=== PATIENT | female | born 1985 | race Two or more races ===

== ENCOUNTER 2018-04-09 17:41 | Emergency (ER) | payer OTHER ==
[2018-04-09 20:29] LABS: BASO # 0.1 10^3/uL (0.0-0.2); BASO % 0.6 % (0.0-1.0); EOS # 0.1 10^3/uL (0.0-0.50); EOS % 0.8 % (0.0-3.0); HEMATOCRIT 42.2 % (36.0-47.0); HEMOGLOBIN 13.6 g/dl (12.0-15.5); IMMATURE GRANULOCYTE % 0.2 % (0-3.0); LYMPH # 2.6 10^3/uL (1.5-4.5); MEAN CORPUSCULAR HEMOGLOBIN 28.8 pg (27.0-33.0); MEAN CORPUSCULAR HGB CONC 32.2 g/dl (32.0-36.5); MEAN CORPUSCULAR VOLUME 89.4 fl (80.0-96.0); MONO # 0.7 10^3/uL (0.0-0.8); MONO % 7.9 % (0.0-5.0); NEUTROPHILS # 5.6 10^3/uL (1.8-7.7); NEUTROPHILS % 61.5 % (36.0-66.0); PLATELET COUNT, AUTOMATED 219 10^3/uL (150-450); RED BLOOD COUNT 4.72 10^6/uL (4.00-5.40); RED CELL DISTRIBUTION WIDTH 14.4 % (11.5-14.5)
[2018-04-09] MEDS: MORPHINE 2 MG/ML 1ML SYRINGE (J2270) IV (20:37)
[2018-04-09] MEDS: NS 1,000 ML IV (20:38)
[2018-04-09] MEDS: METOCLOPRAMIDE INJ 10MG/2ML VIAL (J2765) IV (20:38)
[2018-04-09 20:56] LABS: APPEARANCE, URINE CLEAR (CLEAR); BACTERIA, URINE AUTO NEGATIVE (NEGATIVE); BILIRUBIN, URINE AUTO NEGATIVE (NEGATIVE); BLOOD, URINE BLOOD 1+ (NEGATIVE); COLOR, URINE YELLOW (YELLOW); GLUCOSE, URINE (UA) AUTO NEGATIVE (NEGATIVE); KETONE, URINE AUTO NEGATIVE (NEGATIVE); LEUKOCYTE ESTERASE, URINE AUTO NEGATIVE (NEGATIVE); MUCUS, URINE SMALL (NEGATIVE); NITRITE, URINE AUTO NEGATIVE (NEGATIVE); PROTEIN, URINE AUTO NEGATIVE (NEGATIVE); RBC, URINE AUTO 4 /HPF (0-3); SPECIFIC GRAVITY URINE AUTO 1.018 (1.002-1.035); SQUAMOUS EPITHELIAL CELL UR AU 1 /HPF (0-6); UROBILINOGEN, URINE AUTO 0.2 mg/dL (0.0-2.0); WBC, URINE AUTO 1 /HPF (0-3)
[2018-04-09 21:02] LABS: ALBUMIN 3.9 GM/DL (3.2-5.2); ALBUMIN/GLOBULIN RATIO 1.18 (1.00-1.93); ALKALINE PHOSPHATASE 68 U/L (45-117); ALT/SGPT 23 U/L (12-78); ANION GAP 10 MEQ/L (8-16); AST/SGOT 9 U/L (7-37); BILIRUBIN,DIRECT < 0.1 MG/DL (0.0-0.2); BILIRUBIN,TOTAL 0.3 MG/DL (0.2-1.0); BLOOD UREA NITROGEN 13 MG/DL (7-18); CALCIUM LEVEL 8.5 MG/DL (8.5-10.1); CARBON DIOXIDE LEVEL 24 MEQ/L (21-32); CHLORIDE LEVEL 107 MEQ/L (98-107); CONTROL LINE HCG INT CTR LINE PRESENT; CREATININE FOR GFR 0.74 MG/DL (0.55-1.30); GLOMERULAR FILTRATION RATE > 60.0 (>60); GLUCOSE, FASTING 82 MG/DL (70-100); HCG, SERUM QUALITATIVE NEGATIVE (NEGATIVE); LIPASE 62 U/L (73-393); POTASSIUM SERUM 3.7 MEQ/L (3.5-5.1); SODIUM LEVEL 141 MEQ/L (136-145); TOTAL PROTEIN 7.2 GM/DL (6.4-8.2)
[2018-04-09] MEDS: ACETAMINOPHEN 325 MG TAB PO (23:18)
== END 2018-04-09 23:28 | disposition home or self-care (01) ==
LOC: M ED 17:41
DX: N20.0 Calculus of kidney (principal); Z87.442 Personal history of urinary calculi; Z88.8 Allergy status to other drugs, medicaments and biological substances; Z88.5 Allergy status to narcotic agent
CPT/HCPCS: J2765

== ENCOUNTER 2018-05-17 01:05 | Emergency (ER) | payer OTHER ==
[2018-05-17] MEDS: HYDROMORPHONE HCL 0.5 MG/ 0.5 ML SYRINGE (J1170 PER 1) IV ×2 (01:39→02:45)
[2018-05-17] MEDS: NS 1,000 ML IV (01:39)
[2018-05-17 01:54] LABS: BASO # 0.1 10^3/uL (0.0-0.2); BASO % 0.6 % (0.0-1.0); EOS % 0.4 % (0.0-3.0); HEMATOCRIT 40.9 % (36.0-47.0); HEMOGLOBIN 13.5 g/dl (12.0-15.5); IMMATURE GRANULOCYTE % 0.4 % (0-3.0); LYMPH # 2.8 10^3/uL (1.5-4.5); LYMPH % 36.6 % (24.0-44.0); MEAN CORPUSCULAR HEMOGLOBIN 29.1 pg (27.0-33.0); MEAN CORPUSCULAR VOLUME 88.1 fl (80.0-96.0); MONO # 0.5 10^3/uL (0.0-0.8); MONO % 6.6 % (0.0-5.0); NEUTROPHILS # 4.3 10^3/uL (1.8-7.7); NEUTROPHILS % 55.4 % (36.0-66.0); PLATELET COUNT, AUTOMATED 210 10^3/uL (150-450); RED BLOOD COUNT 4.64 10^6/uL (4.00-5.40); RED CELL DISTRIBUTION WIDTH 13.6 % (11.5-14.5); WHITE BLOOD COUNT 7.7 10^3/uL (4.0-10.0)
[2018-05-17] MEDS: METOCLOPRAMIDE INJ 10MG/2ML VIAL (J2765) IV (01:55)
[2018-05-17 02:16] LABS: ALBUMIN 3.9 GM/DL (3.2-5.2); ALBUMIN/GLOBULIN RATIO 0.98 (1.00-1.93); ALKALINE PHOSPHATASE 66 U/L (45-117); ALT/SGPT 21 U/L (12-78); ANION GAP 8 MEQ/L (8-16); AST/SGOT 14 U/L (7-37); BILIRUBIN,DIRECT < 0.1 MG/DL (0.0-0.2); BILIRUBIN,TOTAL 0.1 MG/DL (0.2-1.0); BLOOD UREA NITROGEN 13 MG/DL (7-18); CALCIUM LEVEL 9.2 MG/DL (8.5-10.1); CARBON DIOXIDE LEVEL 27 MEQ/L (21-32); CHLORIDE LEVEL 111 MEQ/L (98-107); CREATININE FOR GFR 0.81 MG/DL (0.55-1.30); ETHYL ALCOHOL (ETHANOL) 0.231 % (0.000-0.010); GLOMERULAR FILTRATION RATE > 60.0 (>60); GLUCOSE, FASTING 99 MG/DL (70-100); LIPASE 2146 U/L (73-393); POTASSIUM SERUM 4.1 MEQ/L (3.5-5.1); SODIUM LEVEL 146 MEQ/L (136-145); TOTAL PROTEIN 7.9 GM/DL (6.4-8.2)
[2018-05-17 02:24] LABS: CONTROL LINE HCG INT CTR LINE PRESENT; HCG, SERUM QUALITATIVE NEGATIVE (NEGATIVE)
[2018-05-17] MEDS: LORazepam 2 MG/ML VIAL (J2060) IV (02:44)
[2018-05-17 03:29] LABS: KETONE, URINE AUTO RFX NEGATIVE (NEGATIVE); LEUKOCYTE ESTERASE UR AUTO RFX NEGATIVE (NEGATIVE); MUCUS, URINE RFX SMALL (NEGATIVE); NITRITE, URINE AUTO RFX NEGATIVE (NEGATIVE); RBC, URINE AUTO RFX 0 /HPF (0-3); SPECIFIC GRAVITY UR AUTO RFX 1.012 (1.002-1.035); SQUAM EPITHELIAL CELL UR AURFX 1 /HPF (0-6); WBC, URINE AUTO RFX 1 /HPF (0-3)
[2018-05-17 03:41] LABS: AMPHETAMINES LEVEL URINE NEGATIVE (NEGATIVE); BARBITURATES URINE NEGATIVE (NEGATIVE); BENZODIAZEPINES URINE NEGATIVE (NEGATIVE); CANNABINOIDS URINE NEGATIVE (NEGATIVE); COCAINE METABOLITE URINE NEGATIVE (NEGATIVE); METHADONE URINE NEGATIVE (NEGATIVE); OPIATES URINE POSITIVE (NEGATIVE); PHENCYCLIDINE URINE NEGATIVE (NEGATIVE)
[2018-05-17] MEDS: OXYCODONE/APAP 5MG/325MG(BULK FOR ED) 1 TABLET PO (04:05)
[2018-05-17] MEDS: GI COCKTAIL 50ML BTL(HYOSCYAMINE/MAALOX/LIDOCAINE VISCOUS)(1:3:1) PO (04:05)
== END 2018-05-17 04:28 | disposition home or self-care (01) ==
LOC: M ED 01:05
DX: K85.20 Alcohol induced acute pancreatitis without necrosis or infection (principal); Z87.442 Personal history of urinary calculi; Z88.5 Allergy status to narcotic agent; Z88.8 Allergy status to other drugs, medicaments and biological substances
CPT/HCPCS: J2765

== ENCOUNTER 2018-05-18 13:30 | Emergency (ER) | payer OTHER ==
[2018-05-18 14:30] LABS: BASO # 0.1 10^3/uL (0.0-0.2); BASO % 0.8 % (0.0-1.0); EOS % 0.7 % (0.0-3.0); HEMATOCRIT 42.2 % (36.0-47.0); HEMOGLOBIN 13.3 g/dl (12.0-15.5); IMMATURE GRANULOCYTE % 0.2 % (0-3.0); LYMPH % 32.5 % (24.0-44.0); MEAN CORPUSCULAR HEMOGLOBIN 29.4 pg (27.0-33.0); MEAN CORPUSCULAR HGB CONC 31.5 g/dl (32.0-36.5); MEAN CORPUSCULAR VOLUME 93.2 fl (80.0-96.0); MONO # 0.4 10^3/uL (0.0-0.8); NEUTROPHILS # 3.6 10^3/uL (1.8-7.7); NEUTROPHILS % 58.8 % (36.0-66.0); PLATELET COUNT, AUTOMATED 210 10^3/uL (150-450); RED BLOOD COUNT 4.53 10^6/uL (4.00-5.40); RED CELL DISTRIBUTION WIDTH 13.7 % (11.5-14.5)
[2018-05-18 14:31] LABS: KETONE, URINE AUTO RFX NEGATIVE (NEGATIVE); LEUKOCYTE ESTERASE UR AUTO RFX NEGATIVE (NEGATIVE); MUCUS, URINE RFX SMALL (NEGATIVE); NITRITE, URINE AUTO RFX NEGATIVE (NEGATIVE); RBC, URINE AUTO RFX 1 /HPF (0-3); SPECIFIC GRAVITY UR AUTO RFX 1.021 (1.002-1.035); SQUAM EPITHELIAL CELL UR AURFX 2 /HPF (0-6); WBC, URINE AUTO RFX 1 /HPF (0-3)
[2018-05-18 14:48] LABS: ALBUMIN 3.5 GM/DL (3.2-5.2); ALBUMIN/GLOBULIN RATIO 0.92 (1.00-1.93); ALKALINE PHOSPHATASE 59 U/L (45-117); ALT/SGPT 21 U/L (12-78); AMYLASE 26 U/L (25-115); ANION GAP 9 MEQ/L (8-16); AST/SGOT 10 U/L (7-37); BILIRUBIN,DIRECT < 0.1 MG/DL (0.0-0.2); BILIRUBIN,TOTAL 0.3 MG/DL (0.2-1.0); BLOOD UREA NITROGEN 18 MG/DL (7-18); CALCIUM LEVEL 8.6 MG/DL (8.5-10.1); CARBON DIOXIDE LEVEL 23 MEQ/L (21-32); CHLORIDE LEVEL 109 MEQ/L (98-107); CREATININE FOR GFR 0.84 MG/DL (0.55-1.30); GLOMERULAR FILTRATION RATE > 60.0 (>60); GLUCOSE, FASTING 91 MG/DL (70-100); LIPASE 81 U/L (73-393); POTASSIUM SERUM 3.9 MEQ/L (3.5-5.1); SODIUM LEVEL 141 MEQ/L (136-145); TOTAL PROTEIN 7.3 GM/DL (6.4-8.2)
[2018-05-18] MEDS ORDERED: ISOVUE-370 76% 100ML VIAL (Q9967) As Ordered (16:33)
[2018-05-18] MEDS: NS 1,000 ML IV (17:50)
[2018-05-18] MEDS: MORPHINE 4 MG/ML 1ML VIAL/SYRINGE (J2270) IV (17:50)
[2018-05-18] MEDS: ONDANSETRON 4MG/2ML VIAL (J2405) IV (18:02)
[2018-05-18] MEDS: HYDROMORPHONE HCL 0.5 MG/ 0.5 ML SYRINGE (J1170 PER 1) IV ×2 (18:47→19:40)
[2018-05-18] MEDS: LORazepam 2 MG/ML VIAL (J2060) IV (19:34)
[2018-05-18] MEDS: ONDANSETRON 4 MG ORAL DISINTEGRATING TAB (Q0162 PER 1MG) PO (20:00)
[2018-05-18] MEDS: ACETAMINOPH W/CODEINE #3 TAB UD PO (20:06)
== END 2018-05-18 20:12 | disposition home or self-care (01) ==
LOC: M ED 13:30
DX: R10.9 Unspecified abdominal pain (principal); Z87.19 Personal history of other diseases of the digestive system; F41.9 Anxiety disorder, unspecified; Z87.442 Personal history of urinary calculi; Z88.5 Allergy status to narcotic agent; Z88.8 Allergy status to other drugs, medicaments and biological substances
CPT/HCPCS: J2270

== ENCOUNTER 2018-06-24 10:15 | Emergency (ER) | payer OTHER ==
[2018-06-24 11:12] LABS: KETONE, URINE AUTO RFX NEGATIVE (NEGATIVE); LEUKOCYTE ESTERASE UR AUTO RFX NEGATIVE (NEGATIVE); MUCUS, URINE RFX SMALL (NEGATIVE); NITRITE, URINE AUTO RFX NEGATIVE (NEGATIVE); RBC, URINE AUTO RFX 4 /HPF (0-3); SPECIFIC GRAVITY UR AUTO RFX 1.025 (1.002-1.035); SQUAM EPITHELIAL CELL UR AURFX 1 /HPF (0-6); WBC, URINE AUTO RFX 1 /HPF (0-3)
[2018-06-24] MEDS: MORPHINE 4 MG/ML 1ML VIAL/SYRINGE (J2270) IV ×2 (11:28→12:15)
[2018-06-24] MEDS: ONDANSETRON 4MG/2ML VIAL (J2405) IV (11:28)
[2018-06-24] MEDS: NS 1,000 ML IV (11:28)
[2018-06-24] MEDS: TAMSULOSIN 0.4 MG CAP PO (11:28)
[2018-06-24 11:45] LABS: BASO % 0.6 % (0.0-1.0); EOS # 0.1 10^3/uL (0.0-0.50); EOS % 0.8 % (0.0-3.0); HEMATOCRIT 43.5 % (36.0-47.0); HEMOGLOBIN 14.1 g/dl (12.0-15.5); IMMATURE GRANULOCYTE % 0.1 % (0-3.0); LYMPH # 1.9 10^3/uL (1.5-4.5); LYMPH % 26.3 % (24.0-44.0); MEAN CORPUSCULAR HEMOGLOBIN 29.6 pg (27.0-33.0); MEAN CORPUSCULAR HGB CONC 32.4 g/dl (32.0-36.5); MEAN CORPUSCULAR VOLUME 91.2 fl (80.0-96.0); MONO # 0.5 10^3/uL (0.0-0.8); MONO % 6.7 % (0.0-5.0); NEUTROPHILS # 4.7 10^3/uL (1.8-7.7); NEUTROPHILS % 65.5 % (36.0-66.0); PLATELET COUNT, AUTOMATED 185 10^3/uL (150-450); RED BLOOD COUNT 4.77 10^6/uL (4.00-5.40); RED CELL DISTRIBUTION WIDTH 12.8 % (11.5-14.5); WHITE BLOOD COUNT 7.2 10^3/uL (4.0-10.0)
[2018-06-24 12:04] LABS: ALBUMIN 3.9 GM/DL (3.2-5.2); ALKALINE PHOSPHATASE 64 U/L (45-117); ALT/SGPT 20 U/L (12-78); ANION GAP 7 MEQ/L (8-16); AST/SGOT 12 U/L (7-37); BILIRUBIN,TOTAL 0.4 MG/DL (0.2-1.0); BLOOD UREA NITROGEN 13 MG/DL (7-18); CALCIUM LEVEL 8.8 MG/DL (8.5-10.1); CARBON DIOXIDE LEVEL 27 MEQ/L (21-32); CHLORIDE LEVEL 106 MEQ/L (98-107); CREATININE FOR GFR 0.83 MG/DL (0.55-1.30); GLOMERULAR FILTRATION RATE > 60.0 (>60); GLUCOSE, FASTING 94 MG/DL (70-100); LIPASE 77 U/L (73-393); POTASSIUM SERUM 4.1 MEQ/L (3.5-5.1); SODIUM LEVEL 140 MEQ/L (136-145); TOTAL PROTEIN 7.8 GM/DL (6.4-8.2)
[2018-06-24] MEDS: PROMETHAZINE 25 MG TAB PO (12:15)
[2018-06-24] MEDS: PHENAZOPYRIDINE 100 MG TAB PO (13:20)
[2018-06-24] MEDS: fentaNYL 100 MCG/2 ML INJECTION (J3010) IV (13:20)
== END 2018-06-24 14:14 | disposition home or self-care (01) ==
LOC: M ED 10:15
DX: R10.2 Pelvic and perineal pain (principal); R11.2 Nausea with vomiting, unspecified; R19.7 Diarrhea, unspecified; N20.0 Calculus of kidney; Z96.0 Presence of urogenital implants; Z88.5 Allergy status to narcotic agent; Z88.8 Allergy status to other drugs, medicaments and biological substances; Z87.891 Personal history of nicotine dependence
CPT/HCPCS: J2270

== ENCOUNTER 2018-07-15 16:59 | Emergency (ER) | payer OTHER ==
[2018-07-15 18:02] LABS: BASO % 0.4 % (0.0-1.0); EOS # 0.1 10^3/uL (0.0-0.50); EOS % 0.7 % (0.0-3.0); HEMOGLOBIN 13.6 g/dl (12.0-15.5); IMMATURE GRANULOCYTE % 0.4 % (0-3.0); LYMPH # 2.4 10^3/uL (1.5-4.5); MEAN CORPUSCULAR HEMOGLOBIN 30.3 pg (27.0-33.0); MEAN CORPUSCULAR HGB CONC 33.2 g/dl (32.0-36.5); MEAN CORPUSCULAR VOLUME 91.3 fl (80.0-96.0); MONO # 0.7 10^3/uL (0.0-0.8); MONO % 6.7 % (0.0-5.0); NEUTROPHILS # 6.8 10^3/uL (1.8-7.7); NEUTROPHILS % 67.8 % (36.0-66.0); PLATELET COUNT, AUTOMATED 230 10^3/uL (150-450); RED BLOOD COUNT 4.49 10^6/uL (4.00-5.40); RED CELL DISTRIBUTION WIDTH 12.5 % (11.5-14.5)
[2018-07-15] MEDS: NS 1,000 ML IV (18:04)
[2018-07-15] MEDS: MORPHINE 4 MG/ML 1ML VIAL/SYRINGE (J2270) IV ×2 (18:05→19:35)
[2018-07-15] MEDS: METOCLOPRAMIDE INJ 10MG/2ML VIAL (J2765) IV (18:05)
[2018-07-15 18:09] LABS: KETONE, URINE AUTO RFX NEGATIVE (NEGATIVE); LEUKOCYTE ESTERASE UR AUTO RFX NEGATIVE (NEGATIVE); MUCUS, URINE RFX SMALL (NEGATIVE); NITRITE, URINE AUTO RFX NEGATIVE (NEGATIVE); RBC, URINE AUTO RFX 1 /HPF (0-3); SPECIFIC GRAVITY UR AUTO RFX 1.023 (1.002-1.035); SQUAM EPITHELIAL CELL UR AURFX 7 /HPF (0-6); WBC, URINE AUTO RFX 2 /HPF (0-3)
[2018-07-15 18:48] LABS: ALBUMIN 3.8 GM/DL (3.2-5.2); ALBUMIN/GLOBULIN RATIO 1.12 (1.00-1.93); ALKALINE PHOSPHATASE 64 U/L (45-117); ALT/SGPT 21 U/L (12-78); AMYLASE 22 U/L (25-115); ANION GAP 11 MEQ/L (8-16); AST/SGOT 12 U/L (7-37); BILIRUBIN,DIRECT < 0.1 MG/DL (0.0-0.2); BILIRUBIN,TOTAL 0.3 MG/DL (0.2-1.0); BLOOD UREA NITROGEN 15 MG/DL (7-18); CALCIUM LEVEL 8.7 MG/DL (8.5-10.1); CARBON DIOXIDE LEVEL 20 MEQ/L (21-32); CHLORIDE LEVEL 112 MEQ/L (98-107); CREATININE FOR GFR 0.62 MG/DL (0.55-1.30); GLOMERULAR FILTRATION RATE > 60.0 (>60); GLUCOSE, FASTING 106 MG/DL (70-100); LIPASE 86 U/L (73-393); POTASSIUM SERUM 4.2 MEQ/L (3.5-5.1); SODIUM LEVEL 143 MEQ/L (136-145); TOTAL PROTEIN 7.2 GM/DL (6.4-8.2)
[2018-07-15] MEDS ORDERED: ISOVUE-370 76% 100ML VIAL (Q9967) As Ordered (18:50)
[2018-07-15] MEDS: ONDANSETRON 4MG/2ML VIAL (J2405) IV (19:35)
[2018-07-15] MEDS: ACETAMINOPH W/CODEINE #3 TAB UD PO (21:45)
== END 2018-07-15 22:03 | disposition home or self-care (01) ==
LOC: M ED 16:59
DX: N83.209 Unspecified ovarian cyst, unspecified side (principal)
CPT/HCPCS: J2270

== ENCOUNTER → 2018-08-18 | Outpatient (CLI) | payer OTHER | LOC: M RAD 19:04 | DX: N20.0 Calculus of kidney (principal) | CPT/HCPCS: 74018 ==

== ENCOUNTER 2018-08-21 09:09 | Day surgery (SDC) | payer OTHER ==
[2018-08-21 10:56] LABS: CONTROL LINE UCG INT CTR LINE PRESENT; URINE PREG TEST NEGATIVE (NEGATIVE)
[2018-08-21] MEDS ORDERED: ONDANSETRON 4MG/2ML VIAL (J2405) As Ordered (11:36)
[2018-08-21] MEDS ORDERED: dexameTHASONE 4 MG/ML 1ML VIAL (J1100) As Ordered (11:36)
[2018-08-21] MEDS ORDERED: LIDOCAINE 2% INJ 100 MG/5 ML SDV (FOR ANES.) As Ordered (11:36)
[2018-08-21] MEDS ORDERED: PROPOFOL 200 MG/20 ML VIAL As Ordered (11:36)
[2018-08-21] MEDS ORDERED: fentaNYL 100 MCG/2 ML INJECTION (J3010) As Ordered ×2 (11:37→13:12)
[2018-08-21] MEDS ORDERED: MIDAZOLAM INJ 2 MG/2 ML VIAL (J2250) As Ordered (11:37)
[2018-08-21] MEDS ORDERED: ACETAMINOPH W/CODEINE #3 TAB UD As Ordered (13:15)
[2018-08-21] MEDS ORDERED: PERCOCET 5MG/325MG TAB As Ordered ×2 (13:19→14:01)
[2018-08-21] MEDS ORDERED: MORPHINE 4 MG/ML 1ML VIAL/SYRINGE (J2270) As Ordered (13:26)
[2018-08-21] MEDS: MORPHINE 4 MG/ML 1ML VIAL/SYRINGE (J2270) IV ×5 (13:29→23:01)
[2018-08-21] MEDS: PERCOCET 5MG/325MG TAB PO ×3 (13:29→23:02)
[2018-08-21] MEDS ORDERED: ACETAMINOPH W/CODEINE #3 TAB UD PO ×2 (13:30)
[2018-08-21] MEDS ORDERED: ePHEDrine SULFATE 25 MG/5 ML(5MG/ML) SYRINGE As Ordered (13:52)
[2018-08-21] MEDS ORDERED: METOCLOPRAMIDE INJ 10MG/2ML VIAL (J2765) As Ordered (13:58)
[2018-08-21] MEDS ORDERED: fentaNYL 100 MCG/2 ML INJECTION (J3010) IV (14:15)
[2018-08-21] MEDS: ONDANSETRON 4MG/2ML VIAL (J2405) IV ×2 (14:21→20:33)
[2018-08-21] MEDS: TAMSULOSIN 0.4 MG CAP PO (18:01)
[2018-08-21] MEDS: diphenhydrAMINE 25 MG CAP PO (20:33)
[2018-08-22] MEDS: MORPHINE 4 MG/ML 1ML VIAL/SYRINGE (J2270) IV ×6 (01:35→18:45)
[2018-08-22] MEDS: ONDANSETRON 4MG/2ML VIAL (J2405) IV ×2 (05:37→10:34)
[2018-08-22] MEDS: diphenhydrAMINE 25 MG CAP PO (05:38)
[2018-08-22] MEDS: PERCOCET 5MG/325MG TAB PO ×2 (05:39→10:34)
[2018-08-22] MEDS: DOCUSATE SODIUM 100 MG CAP PO (09:47)
[2018-08-22] MEDS: NS 1,000 ML IV (09:47)
[2018-08-22] MEDS: TAMSULOSIN 0.4 MG CAP PO (09:47)
[2018-08-22] MEDS: oxyBUTYnin 5 MG TAB PO (14:54)
[2018-08-22] MEDS ORDERED: ACETAMINOPH W/CODEINE #3 TAB UD PO (16:45)
[2018-08-22] MEDS: ACETAMINOPH W/CODEINE #3 TAB UD PO (16:56)
[2018-08-22] MEDS: IBUPROFEN 600 MG TAB PO (18:15)
== END 2018-08-22 19:17 | disposition home or self-care (01) ==
LOC: M SDC 09:09 → M MSPAV 16:40 → M SDC 08-22 19:17
DX: N20.0 Calculus of kidney (principal); R30.0 Dysuria; K21.9 Gastro-esophageal reflux disease without esophagitis; F41.9 Anxiety disorder, unspecified; F32.9 Major depressive disorder, single episode, unspecified; Z88.5 Allergy status to narcotic agent; Z88.8 Allergy status to other drugs, medicaments and biological substances
CPT/HCPCS: 50590

== ENCOUNTER 2018-08-31 22:20 | Emergency (ER) | payer OTHER ==
[2018-08-31] MEDS: METOCLOPRAMIDE INJ 10MG/2ML VIAL (J2765) IV (22:46)
[2018-08-31] MEDS: MORPHINE 4 MG/ML 1ML VIAL/SYRINGE (J2270) IV ×2 (22:46→23:08)
[2018-09-01] MEDS: OXYCODONE/APAP 5MG/325MG(BULK FOR ED) 1 TABLET PO (00:27)
[2018-09-01 00:34] LABS: KETONE, URINE AUTO RFX NEGATIVE (NEGATIVE); LEUKOCYTE ESTERASE UR AUTO RFX NEGATIVE (NEGATIVE); MUCUS, URINE RFX SMALL (NEGATIVE); NITRITE, URINE AUTO RFX NEGATIVE (NEGATIVE); RBC, URINE AUTO RFX 1 /HPF (0-3); SPECIFIC GRAVITY UR AUTO RFX 1.008 (1.002-1.035); SQUAM EPITHELIAL CELL UR AURFX 2 /HPF (0-6); WBC, URINE AUTO RFX 1 /HPF (0-3)
[2018-09-01 00:41] LABS: BASO # 0.1 10^3/uL (0.0-0.2); BASO % 0.7 % (0.0-1.0); EOS # 0.1 10^3/uL (0.0-0.50); HEMATOCRIT 40.6 % (36.0-47.0); HEMOGLOBIN 13.3 g/dl (12.0-15.5); IMMATURE GRANULOCYTE % 0.6 % (0-3.0); LYMPH % 44.3 % (24.0-44.0); MEAN CORPUSCULAR HGB CONC 32.8 g/dl (32.0-36.5); MEAN CORPUSCULAR VOLUME 91.4 fl (80.0-96.0); MONO # 0.3 10^3/uL (0.0-0.8); MONO % 4.5 % (0.0-5.0); NEUTROPHILS # 3.3 10^3/uL (1.8-7.7); NEUTROPHILS % 48.9 % (36.0-66.0); PLATELET COUNT, AUTOMATED 214 10^3/uL (150-450); RED BLOOD COUNT 4.44 10^6/uL (4.00-5.40); RED CELL DISTRIBUTION WIDTH 12.3 % (11.5-14.5); WHITE BLOOD COUNT 6.8 10^3/uL (4.0-10.0)
[2018-09-01 01:13] LABS: INR 0.88; PROTHROMBIN TIME 12.1 SECONDS (12.1-14.4)
[2018-09-01 01:37] LABS: ALBUMIN 3.8 GM/DL (3.2-5.2); ALBUMIN/GLOBULIN RATIO 1.12 (1.00-1.93); ALKALINE PHOSPHATASE 65 U/L (45-117); ALT/SGPT 32 U/L (12-78); ANION GAP 12 MEQ/L (8-16); AST/SGOT 15 U/L (7-37); BILIRUBIN,DIRECT < 0.1 MG/DL (0.0-0.2); BILIRUBIN,TOTAL 0.2 MG/DL (0.2-1.0); BLOOD UREA NITROGEN 11 MG/DL (7-18); CALCIUM LEVEL 8.2 MG/DL (8.5-10.1); CARBON DIOXIDE LEVEL 22 MEQ/L (21-32); CHLORIDE LEVEL 111 MEQ/L (98-107); CREATININE FOR GFR 0.68 MG/DL (0.55-1.30); GLOMERULAR FILTRATION RATE > 60.0 (>60); GLUCOSE, FASTING 111 MG/DL (70-100); LIPASE 2840 U/L (73-393); POTASSIUM SERUM 3.9 MEQ/L (3.5-5.1); SODIUM LEVEL 145 MEQ/L (136-145); TOTAL PROTEIN 7.2 GM/DL (6.4-8.2)
== END 2018-09-01 00:43 | disposition home or self-care (01) ==
LOC: M ED 09-01 00:43
DX: N20.1 Calculus of ureter (principal); Z87.442 Personal history of urinary calculi; Z88.8 Allergy status to other drugs, medicaments and biological substances; Z88.5 Allergy status to narcotic agent; Z79.899 Other long term (current) drug therapy
CPT/HCPCS: J2270

== ENCOUNTER 2018-10-20 00:36 | Emergency (ER) | payer OTHER ==
[~2018-10-20] VITALS: Ht 165.1 cm; Wt 72.7 kg
[~2018-10-20 00:36] MED LIST: ACET30TAB PO; COLA100C5 PO; DILA8TAB5 PO; FLOM0.4C39 PO; MELA3TAB49 PO; PERC5TAB12 PO; PIRO10CA2 PO; ZOFR4TAB14 PO; ZOFR8TAB22 PO; ZOFR8TAB24 PO
[2018-10-20 01:29] LABS: BASO # 0.1 10^3/uL (0.0-0.2); BASO % 0.7 % (0.0-1.0); EOS # 0.1 10^3/uL (0.0-0.50); EOS % 0.8 % (0.0-3.0); HEMATOCRIT 42.5 % (36.0-47.0); HEMOGLOBIN 13.5 g/dl (12.0-15.5); LYMPH # 3.5 10^3/uL (1.5-4.5); LYMPH % 38.9 % (24.0-44.0); MEAN CORPUSCULAR HGB CONC 31.8 g/dl (32.0-36.5); MEAN CORPUSCULAR VOLUME 91.4 fl (80.0-96.0); MONO # 0.4 10^3/uL (0.0-0.8); MONO % 4.9 % (0.0-5.0); NEUTROPHILS # 4.9 10^3/uL (1.8-7.7); NEUTROPHILS % 54.5 % (36.0-66.0); PLATELET COUNT, AUTOMATED 243 10^3/uL (150-450); RED BLOOD COUNT 4.65 10^6/uL (4.00-5.40); WHITE BLOOD COUNT 8.9 10^3/uL (4.0-10.0)
[2018-10-20] MEDS ORDERED: ONDANSETRON 4MG/2ML VIAL (J2405) IV ONE (01:30)
[2018-10-20] MEDS ORDERED: NS 1,000 ML IV ONE (01:30)
[2018-10-20] MEDS ORDERED: MORPHINE 4 MG/ML 1ML VIAL/SYRINGE (J2270) IV ONE (01:30)
[2018-10-20 01:34] LABS: HCG, SERUM QUALITATIVE NEGATIVE (NEGATIVE)
[2018-10-20 01:40] LABS: ALBUMIN 3.7 GM/DL (3.2-5.2); ALT/SGPT 18 U/L (12-78); BILIRUBIN,DIRECT < 0.1 MG/DL (0.0-0.2); BILIRUBIN,TOTAL < 0.1 MG/DL (0.2-1.0); BLOOD UREA NITROGEN 14 MG/DL (7-18); CALCIUM LEVEL 8.6 MG/DL (8.5-10.1); CARBON DIOXIDE LEVEL 22 MEQ/L (21-32); CHLORIDE LEVEL 113 MEQ/L (98-107); CREATININE FOR GFR 0.83 MG/DL (0.55-1.30); ETHYL ALCOHOL (ETHANOL) 0.234 % (0.000-0.010); GLOMERULAR FILTRATION RATE > 60.0 (>60); GLUCOSE, FASTING 109 MG/DL (70-100); LIPASE 114 U/L (73-393); POTASSIUM SERUM 4.1 MEQ/L (3.5-5.1); SODIUM LEVEL 143 MEQ/L (136-145); TOTAL PROTEIN 7.5 GM/DL (6.4-8.2)
[2018-10-20] MEDS ORDERED: fentaNYL 100 MCG/2 ML INJECTION (J3010) IV ONE ×2 (02:00→02:45)
[2018-10-20 02:31] LABS: AMPHETAMINES LEVEL URINE NEGATIVE (NEGATIVE); BARBITURATES URINE NEGATIVE (NEGATIVE); BENZODIAZEPINES URINE NEGATIVE (NEGATIVE); CANNABINOIDS URINE NEGATIVE (NEGATIVE); COCAINE METABOLITE URINE NEGATIVE (NEGATIVE); METHADONE URINE NEGATIVE (NEGATIVE); OPIATES URINE POSITIVE (NEGATIVE); PHENCYCLIDINE URINE NEGATIVE (NEGATIVE)
[2018-10-20] MEDS ORDERED: LORazepam 2 MG/ML VIAL (J2060) IV STA (02:39)
[2018-10-20 03:34] LABS: CHLAMYDIA DNA AMPLIFICATION NEGATIVE (NEGATIVE); GC DNA AMPLIFICATION NEGATIVE (NEGATIVE)
[2018-10-20] MEDS ORDERED: ISOVUE-370 76% 100ML VIAL (Q9967) As Ordered ONE (03:55)
[2018-10-20] MEDS ORDERED: PROMETHAZINE INJ 25 MG/ML VIAL (J2550) IV ONE (04:45)
[2018-10-20] MEDS: GI COCKTAIL 50ML BTL(HYOSCYAMINE/MAALOX/LIDOCAINE VISCOUS)(1:3:1) PO ONE ×2 (04:45→05:02)
[2018-10-20 04:57] VITALS: BP 107/68
--- NOTE | 2018-10-20 05:47 | REPVR ---
EXAM: CT Abdomen and Pelvis With Contrast EXAM DATE/TIME: 10/20/2018 4:49 AM CLINICAL HISTORY: 32 years old, female; Pain; Abdominal pain; Additional info: Suprapubic pain TECHNIQUE: Axial computed tomography images of the abdomen and pelvis with intravenous contrast. All CT scans at this facility use at least one of these dose optimization techniques: automated exposure control; mA and/or kV adjustment per patient size (includes targeted exams where dose is matched to clinical indication); or iterative reconstruction. Coronal and sagittal reformatted images were created and reviewed. CONTRAST: 100 ml of iso 370 administered intravenously. COMPARISON: CT ABD/PEL W/IV CONTRAST ONLY 07/15/2018 6:47 PM FINDINGS: Lower thorax: Minimal bilateral lower lobe dependent atelectasis. ABDOMEN: Liver: Normal. No mass. Gallbladder and bile ducts: Normal. No calcified stones. No ductal dilation. Pancreas: Normal. No ductal dilation. Spleen: Splenic calcification. Adrenals: Normal. No mass. Kidneys and ureters: Small nonobstructing left renal calculus. Stomach and bowel: Normal. No obstruction. No mucosal thickening. Appendix: A normal appendix is seen. PELVIS: Bladder: Unremarkable as visualized. Reproductive: Unremarkable as visualized. ABDOMEN and PELVIS: Intraperitoneal space: Normal. No free air. No significant fluid collection. Bones/joints: No acute fracture. No dislocation. Soft tissues: Unremarkable. Vasculature: Normal. No abdominal aortic aneurysm. Lymph nodes: Normal. No enlarged lymph nodes. IMPRESSION: 1. Resolution of right ovarian cyst/follicle since 07/15/2018. There has also been resolution of nonobstructing right renal calculus and right obstructive uropathy. 2. Small nonobstructing left renal calculus which remains unchanged. 3. Otherwise negative CT abdomen/pelvis. Electronically signed by: Colin Schmidt On 10/20/2018 05:47:12 AM
[2018-10-20 07:31] LABS: CHLAMYDIA DNA AMPLIFICATION NEGATIVE (NEGATIVE); GC DNA AMPLIFICATION NEGATIVE (NEGATIVE)
== END 2018-10-20 06:35 | disposition left against medical advice (07) ==
LOC: M ED 00:36
DX: R10.9 Unspecified abdominal pain (principal); F10.129 Alcohol abuse with intoxication, unspecified
CPT/HCPCS: 74177; 80048; 80076; 80307; 81001; 83690; 84703; 85025; 87491; 87591; 93041; 96374; 96375; 96376; 99284; G0480; J2060; J2270; J2405; J3010; Q9967

== ENCOUNTER 2018-12-08 10:52 | Emergency (ER) | payer OTHER ==
[~2018-12-08] VITALS: Ht 165.1 cm; Wt 77.3 kg
[2018-12-08] MEDS ORDERED: MORPHINE 4 MG/ML 1ML VIAL/SYRINGE (J2270) IV ONE (11:30)
[2018-12-08] MEDS ORDERED: ONDANSETRON 4MG/2ML VIAL (J2405) IV ONE ×2 (11:30→13:45)
[2018-12-08] MEDS ORDERED: NS 1,000 ML IV ONE (11:30)
[2018-12-08 12:11] LABS: BASO % 0.7 % (0.0-1.0); EOS # 0.1 10^3/uL (0.0-0.50); EOS % 0.9 % (0.0-3.0); HEMATOCRIT 42.8 % (36.0-47.0); HEMOGLOBIN 13.7 g/dl (12.0-15.5); LYMPH % 36.9 % (24.0-44.0); MEAN CORPUSCULAR HEMOGLOBIN 29.4 pg (27.0-33.0); MEAN CORPUSCULAR VOLUME 91.8 fl (80.0-96.0); MONO # 0.5 10^3/uL (0.0-0.8); MONO % 9.9 % (0.0-5.0); NEUTROPHILS # 2.8 10^3/uL (1.8-7.7); NEUTROPHILS % 51.4 % (36.0-66.0); PLATELET COUNT, AUTOMATED 210 10^3/uL (150-450); RED BLOOD COUNT 4.66 10^6/uL (4.00-5.40); WHITE BLOOD COUNT 5.4 10^3/uL (4.0-10.0)
[2018-12-08] MEDS ORDERED: METOCLOPRAMIDE INJ 10MG/2ML VIAL (J2765) IV ONE (12:30)
[2018-12-08 12:42] LABS: HCG, SERUM QUALITATIVE NEGATIVE (NEGATIVE)
[2018-12-08 12:47] LABS: ALBUMIN 3.8 GM/DL (3.2-5.2); ALT/SGPT 20 U/L (12-78); AMYLASE 21 U/L (25-115); BILIRUBIN,DIRECT < 0.1 MG/DL (0.0-0.2); BILIRUBIN,TOTAL 0.3 MG/DL (0.2-1.0); BLOOD UREA NITROGEN 18 MG/DL (7-18); CALCIUM LEVEL 8.5 MG/DL (8.5-10.1); CARBON DIOXIDE LEVEL 24 MEQ/L (21-32); CHLORIDE LEVEL 107 MEQ/L (98-107); CREATININE FOR GFR 0.69 MG/DL (0.55-1.30); GLOMERULAR FILTRATION RATE > 60.0 (>60); GLUCOSE, FASTING 88 MG/DL (70-100); LIPASE 51 U/L (73-393); SODIUM LEVEL 139 MEQ/L (136-145)
[2018-12-08] MEDS ORDERED: HYDROMORPHONE HCL 0.5 MG/ 0.5 ML SYRINGE (J1170 PER 1) IV ONE (13:45)
[2018-12-08] MEDS ORDERED: CODE30TA3 PO (15:06)
[2018-12-08] MEDS ORDERED: PROM12.56 PO (15:07)
[2018-12-08 15:09] VITALS: BP 137/87
--- NOTE | 2018-12-08 16:49 | REP ---
CT ABDOMEN AND PELVIS WITHOUT IV CONTRAST: CT abdomen and pelvis was performed without oral or IV contrast. Sagittal and coronal reconstruction images are performed. Visualized lung bases are clear. A few tiny calcified granulomas are seen in the liver and spleen. The adrenals and pancreas are grossly unremarkable. 2 mm intrarenal calculus is seen in the left renal collecting system. There is no evidence of ureteral calculus. There is no evidence of hydroureteronephrosis. There is no abdominal aortic aneurysm. There is no adenopathy. There is no free air or free fluid. No bowel wall thickening is seen. There is no evidence of appendicitis. There is no evidence of a pelvic mass. Urinary bladder is not distended and not evaluated. IMPRESSION: Tiny 2 mm intrarenal calculus left kidney. No ureteral calculus or bladder calculus. No hydroureteronephrosis. No appendicitis. No free air or free fluid. Electronically Signed by Campos Persaud MD 12/08/2018 11:53 P
== END 2018-12-08 15:24 | disposition home or self-care (01) ==
LOC: M ED 10:52
DX: N20.0 Calculus of kidney (principal); R11.2 Nausea with vomiting, unspecified; Z87.442 Personal history of urinary calculi; F41.9 Anxiety disorder, unspecified; F32.9 Major depressive disorder, single episode, unspecified; Z88.5 Allergy status to narcotic agent; Z88.8 Allergy status to other drugs, medicaments and biological substances
CPT/HCPCS: 74176; 80048; 80076; 81001; 82150; 83690; 84703; 85025; 96361; 96374; 96375; 96376; 99284; J1170; J2270; J2405; J2765

== ENCOUNTER 2019-01-15 20:23 | Emergency (ER) | payer OTHER ==
[~2019-01-15] VITALS: Ht 165.1 cm; Wt 81.8 kg
[~2019-01-15 20:23] MED LIST changes: +ACET-716 PO; -ACET30TAB PO; +CODE30TA3 PO; +PROM12.56 PO
[2019-01-15 21:06] LABS: BASO # 0.1 10^3/uL (0.0-0.2); BASO % 0.8 % (0.0-1.0); EOS # 0.1 10^3/uL (0.0-0.50); EOS % 0.7 % (0.0-3.0); HEMATOCRIT 40.7 % (36.0-47.0); HEMOGLOBIN 13.3 g/dl (12.0-15.5); LYMPH # 2.8 10^3/uL (1.5-4.5); LYMPH % 36.8 % (24.0-44.0); MEAN CORPUSCULAR HEMOGLOBIN 30.2 pg (27.0-33.0); MEAN CORPUSCULAR HGB CONC 32.7 g/dl (32.0-36.5); MEAN CORPUSCULAR VOLUME 92.5 fl (80.0-96.0); MONO # 0.5 10^3/uL (0.0-0.8); NEUTROPHILS # 4.1 10^3/uL (1.8-7.7); NEUTROPHILS % 54.3 % (36.0-66.0); PLATELET COUNT, AUTOMATED 206 10^3/uL (150-450); WHITE BLOOD COUNT 7.6 10^3/uL (4.0-10.0)
[2019-01-15 21:24] LABS: BLOOD UREA NITROGEN 10 MG/DL (7-18); CALCIUM LEVEL 8.5 MG/DL (8.5-10.1); CARBON DIOXIDE LEVEL 23 MEQ/L (21-32); CHLORIDE LEVEL 109 MEQ/L (98-107); CREATININE FOR GFR 0.67 MG/DL (0.55-1.30); GLOMERULAR FILTRATION RATE > 60.0 (>60); GLUCOSE, FASTING 82 MG/DL (70-100); POTASSIUM SERUM 3.5 MEQ/L (3.5-5.1); SODIUM LEVEL 143 MEQ/L (136-145)
[2019-01-15] MEDS ORDERED: LORazepam 2 MG/ML VIAL (J2060) IV STA (22:38)
[2019-01-15] MEDS ORDERED: ISOVUE-370 76% 125ML VIAL (Q9967 PER ML) As Ordered ONE (22:41)
[2019-01-15] MEDS ORDERED: ONDANSETRON 4MG/2ML VIAL (J2405) IV ONE (22:45)
[2019-01-15] MEDS ORDERED: NS 1,000 ML IV ONE (22:45)
[2019-01-15] MEDS ORDERED: MORPHINE 2 MG/ML 1ML SYRINGE (J2270) IV ONE (22:45)
[2019-01-15 23:35] LABS: ALBUMIN 3.9 GM/DL (3.2-5.2); ALT/SGPT 17 U/L (12-78); BILIRUBIN,DIRECT < 0.1 MG/DL (0.0-0.2); BILIRUBIN,TOTAL 0.2 MG/DL (0.2-1.0); ETHYL ALCOHOL (ETHANOL) 0.126 % (0.000-0.010); LIPASE 75 U/L (73-393); TOTAL PROTEIN 7.1 GM/DL (6.4-8.2)
--- NOTE | 2019-01-15 23:49 | REPVR ---
EXAM: CT Abdomen and Pelvis With Contrast EXAM DATE/TIME: 01/15/2019 10:38 PM CLINICAL HISTORY: 33 years old, female; Pain; Abdominal pain; Localized; Right lower quadrant (rlq); Additional info: Rlq pain; R/O appy TECHNIQUE: Imaging protocol: Axial computed tomography images of the abdomen and pelvis with intravenous contrast. Coronal and sagittal reformatted images were created and reviewed. Radiation optimization: All CT scans at this facility use at least one of these dose optimization techniques: automated exposure control; mA and/or kV adjustment per patient size (includes targeted exams where dose is matched to clinical indication); or iterative reconstruction. Contrast material: iso Contrast volume: 100 ml Contrast route: ac COMPARISON: CT ABD/PEL W/IV CONTRAST ONLY 10/20/2018 4:34 AM FINDINGS: Lower thorax: No acute findings. ABDOMEN: Liver: There is a diffuse decrease in hepatic parenchymal density, consistent with fatty infiltration. Calcified hepatic granulomata. Small hepatic cyst. Gallbladder and bile ducts: Normal. No calcified stones. No ductal dilation. Pancreas: Normal. No ductal dilation. Spleen: Calcified granuloma. Otherwise normal. No splenomegaly. Adrenals: Normal. No mass. Kidneys and ureters: Punctate nonobstructive calculus lower pole left kidney. Stomach and bowel: Normal. No obstruction. No mucosal thickening. Appendix: Normal appendix. PELVIS: Bladder: Unremarkable as visualized. Reproductive: Enhancing corpus luteal cyst right ovary. ABDOMEN and PELVIS: Intraperitoneal space: Normal. No free air. No significant fluid collection. Bones/joints: No acute fracture. No dislocation. Soft tissues: Unremarkable. Vasculature: Normal. No abdominal aortic aneurysm. Lymph nodes: Normal. No enlarged lymph nodes. IMPRESSION: 1. Normal appendix. 2. There is a diffuse decrease in hepatic parenchymal density, consistent with fatty infiltration. Electronically signed by: Juan Alberto Mann On 01/15/2019 23:48:59 PM
[2019-01-16] MEDS ORDERED: ACETAMINOPH W/CODEINE #3 TAB UD PO ONE
[2019-01-16] MEDS ORDERED: MORPHINE 2 MG/ML 1ML SYRINGE (J2270) IV ONE
[2019-01-16] MEDS ORDERED: ONDANSETRON 4MG/2ML VIAL (J2405) IV ONE
[2019-01-16] MEDS ORDERED: ONDANSETRON 4 MG ORAL DISINTEGRATING TAB (Q0162 PER 1MG) PO ONE (00:45)
[2019-01-16 00:51] VITALS: BP 127/80
== END 2019-01-16 00:59 | disposition home or self-care (01) ==
LOC: M ED 20:23
DX: G89.29 Other chronic pain (principal); F10.120 Alcohol abuse with intoxication, uncomplicated; K76.0 Fatty (change of) liver, not elsewhere classified; R11.2 Nausea with vomiting, unspecified; Z87.442 Personal history of urinary calculi; Z88.8 Allergy status to other drugs, medicaments and biological substances; Z88.5 Allergy status to narcotic agent
CPT/HCPCS: 36415; 74177; 80048; 80076; 81025; 83690; 85025; 96374; 96375; 96376; 99284; G0480; J2060; J2270; J2405; Q0162; Q9967

== ENCOUNTER 2019-06-28 11:52 | Emergency (ER) | payer OTHER ==
[~2019-06-28] VITALS: Ht 165.1 cm; Wt 86.1 kg
[~2019-06-28 11:52] MED LIST changes: +ACET300T47 PO; -CODE30TA3 PO
[2019-06-28] MEDS ORDERED: NON-325T5 PO (11:59)
[2019-06-28] MEDS ORDERED: TETRACAINE 0.5% OPHTH SOLN 4ML OS ONE (12:15)
[2019-06-28] MEDS ORDERED: FLUORESCEIN OPHTH 1 MG STRIP OS ONE (12:15)
[2019-06-28] MEDS ORDERED: POLYSOL OS (12:54)
[2019-06-28] MEDS ORDERED: TYLETAB14 PO (12:54)
[2019-06-28] MEDS ORDERED: IBUP80TA PO (12:54)
[2019-06-28] MEDS ORDERED: IBUPROFEN 800 MG TAB PO ONE (13:00)
[2019-06-28 13:28] VITALS: BP 107/66
== END 2019-06-28 13:31 | disposition home or self-care (01) ==
LOC: M ED 11:52
DX: H10.32 Unspecified acute conjunctivitis, left eye (principal); Z87.442 Personal history of urinary calculi; Z88.8 Allergy status to other drugs, medicaments and biological substances

== ENCOUNTER 2019-08-01 12:34 | Observation (INO) | payer OTHER ==
[~2019-08-01] VITALS: Ht 165.1 cm; Wt 82.7 kg
[~2019-08-01 12:34] MED LIST changes: +IBUP80TA PO; +NON-325T5 PO; +POLYSOL OS; +TYLETAB14 PO
[2019-08-01] MEDS ORDERED: ONDANSETRON 4MG/2ML VIAL (J2405) IV ONE ×3 (13:30→20:45)
[2019-08-01] MEDS ORDERED: MORPHINE 4 MG/ML 1ML VIAL/SYRINGE (J2270) IV ONE ×3 (13:30→17:30)
[2019-08-01] MEDS ORDERED: NS 1,000 ML IV ONE (13:30)
[2019-08-01 13:57] LABS: BASO % 0.3 % (0.0-1.0); EOS % 0.3 % (0.0-3.0); HEMOGLOBIN 14.1 g/dl (12.0-15.5); LYMPH # 2.3 10^3/uL (1.5-5.0); LYMPH % 19.6 % (24.0-44.0); MEAN CORPUSCULAR HEMOGLOBIN 29.7 pg (27.0-33.0); MEAN CORPUSCULAR VOLUME 92.8 fl (80.0-96.0); MONO # 0.7 10^3/uL (0.0-0.8); MONO % 5.4 % (0.0-5.0); NEUTROPHILS # 8.8 10^3/uL (1.5-8.5); NEUTROPHILS % 74.1 % (36.0-66.0); PLATELET COUNT, AUTOMATED 213 10^3/uL (150-450); RED BLOOD COUNT 4.74 10^6/uL (4.00-5.40)
[2019-08-01 13:58] LABS: URINE PREG TEST NEGATIVE (NEGATIVE)
[2019-08-01 14:25] LABS: ALBUMIN 4.1 GM/DL (3.2-5.2); ALT/SGPT 19 U/L (12-78); BILIRUBIN,DIRECT < 0.1 MG/DL (0.0-0.2); BILIRUBIN,TOTAL 0.4 MG/DL (0.2-1.0); BLOOD UREA NITROGEN 11 MG/DL (7-18); CALCIUM LEVEL 8.7 MG/DL (8.5-10.1); CARBON DIOXIDE LEVEL 25 MEQ/L (21-32); CHLORIDE LEVEL 108 MEQ/L (98-107); CREATININE FOR GFR 0.89 MG/DL (0.55-1.30); GLOMERULAR FILTRATION RATE > 60.0 (>60); GLUCOSE, FASTING 85 MG/DL (70-100); LIPASE 68 U/L (73-393); POTASSIUM SERUM 3.7 MEQ/L (3.5-5.1); SODIUM LEVEL 141 MEQ/L (136-145); TOTAL PROTEIN 7.5 GM/DL (6.4-8.2)
[2019-08-01] MEDS ORDERED: ISOVUE-370 76% 100ML VIAL (Q9967) As Ordered ONE (14:36)
--- NOTE | 2019-08-01 15:31 | REP ---
CT of the abdomen and pelvis with IV contrast, without bowel contrast for right lower quadrant pain, question of appendicitis. Comparison is 01/15/2019. The appendix has a normal appearance. The gallbladder is unremarkable. There are no renal calculi. There is no hydronephrosis. There are no bladder calculi. The uterus and adnexa are unremarkable. There is a 9 ml hypodensity in the dome of the liver laterally, unchanged, likely an hepatic cyst. The gallbladder, pancreas, spleen, adrenals, and abdominal aorta, bowel and mesentery are unremarkable except for a small fat-containing umbilical hernia. This is unchanged. Pelvis: There is no ascites or adenopathy. There is wall thickening of the descending colon. This is nonspecific but compatible with colitis in the appropriate clinical setting. Impression: The appendix has a normal appearance. The gallbladder, uterus and adnexa are unremarkable. There is wall thickening of the descending colon, compatible with colitis in the appropriate clinical setting. No renal calculi. No hydronephrosis. Otherwise, negative CT of the abdomen and pelvis. Electronically Signed by Campos Mejia MD 08/01/2019 03:23 P
--- NOTE | 2019-08-01 17:18 | REPVR ---
PROCEDURE INFORMATION: Exam: US Pelvis Complete, Transabdominal and US Pelvis, Transvaginal Exam date and time: 08/01/2019 4:33 PM Clinical history: 33 years old, female; Pelvic pain; Additional info: Rlq pain R/O torsion TECHNIQUE: Imaging protocol: Real-time transabdominal and transvaginal pelvic ultrasound (complete) with image documentation. Transvaginal imaging was used for better evaluation of the endometrium and adnexa. COMPARISON: CT ABD/PEL W/IV CONTRAST ONLY 08/01/2019 3:05 PM FINDINGS: Uterus/cervix: Uterus measures 8.4 x 3.9 x 5.1 cm. Endometrial echocomplex measures 8 mm mildly increased for stage of menstrual cycle. Right adnexa: Right ovary measures 2.4 1.6 x 1.6 cm. Volume 3.2 cc. Resistive index 0.51. Left adnexa: Left ovary measures 2.1 x 1.6 x 1.1 cm. Volume 1.9 cc. Doppler of the left ovary not performed due to excessive patient discomfort in the right lower quadrant. Free fluid: None. Bladder: Normal. IMPRESSION: Mildly increased thickness of the endometrial echo complex. Left ovary blood flow not obtained as described above. Examination otherwise unremarkable. Electronically signed by: Juan Alberto Mann On 08/01/2019 17:18:09 PM
[2019-08-01] MEDS ORDERED: IBUP80TA PO (17:38)
[2019-08-01] MEDS ORDERED: [UNRECOGNIZED DRUG - OTHER] PO (17:38)
[2019-08-01] MEDS ORDERED: MIDOTAB PO (17:38)
[2019-08-01] MEDS ORDERED: TUMS500C PO (17:38)
[2019-08-01] MEDS ORDERED: ZOFR4TAB16 PO (17:38)
[2019-08-01] MEDS ORDERED: ACETAMINOPHEN TAB 650MG DOSE (2X325MG) PO PRN (18:00)
--- NOTE | 2019-08-01 18:04 | HPEPDOC ---
[facility] Medical History & Physical Date of Admission Aug 01, 2019 Date of Service: Aug 01, 2019 History and Physical CHIEF COMPLAINT: abd pain HISTORY OF PRESENT ILLNESS: 33 yo female history of endometriosis, dysmenorrhea - currently menstruating, presents for worsening right lower quadrant pain radiating to vagina and right flank. States her pain started last night, duration 1 day, intermittent, worsening, no modifying factors, no appetite, nausea and non-bilious vomiting with oral intake. PAST MEDICAL HISTORY: endometriosis nephrolithiasis ALLERGIES: Please see below. REVIEW OF SYSTEMS: Negative except as per HPI. HOME MEDICATIONS: Please see below. PHYSICAL EXAMINATION: VITAL SIGNS: See below General: NAD HEENT: NC/AT, EOMI Lungs: CTA B/L Heart: +S1S2 Abd: soft, NT, +BS, RLQ pain on deep palpation, obese Ext: no edema, multiple tattoos LABORATORY DATA: See below. MICROBIOLOGY: Please see below. ASSESSMENT: 33 yo female for worsening RLQ pain. #RLQ/flank/vaginal pain - unclear etiology - NPO/IVF - pain control - vice president quality improvement c/s #endometriosis - vice president quality improvement c/s pending #DVT prophylaxis - mechanical Vital Signs Vital Signs Date Time Temp Pulse Resp B/P (MAP) Pulse Ox O2 Delivery O2 Flow Rate FiO2 08/01/19 17:41 20 08/01/19 17:38 80 147/82 (103) 99 Room Air 08/01/19 12:35 97.7 Laboratory Data Labs 24H Laboratory Tests 2 08/01/19 13:26: Urine Color YELLOW, Urine Appearance CLOUDYH, Urine pH 7.0, Urine Specific [place] 1.029, Urine Protein 1+H, Urine Glucose (UA) NEGATIVE, Urine Ketones TRACEH, Urine Blood NEGATIVE, Urine Nitrite NEGATIVE, Urine Bilirubin NEGATIVE, Urine Urobilinogen 0.2, Urine Leukocyte Esterase NEGATIVE, Urine WBC (Auto) 0, Urine RBC (Auto) 1, Urine Hyaline Casts (Auto) 0, Urine Bacteria (Auto) NEGATIVE, Urine Squamous Epithelial Cells 1, Urine Amorphous Sediment SMALLH, Urine Mucus (Auto) SMALL, Urine Sperm (Auto) , Urine Test NEGATIVE 08/01/19 13:47: Immature Granulocyte % (Auto) 0.3, White Blood Count 12.0H, Red Blood Count 4.74, Hemoglobin 14.1, Hematocrit 44.0, Mean Corpuscular Volume 92.8, Mean Corpuscular Hemoglobin 29.7, Mean Corpuscular Hemoglobin Concent 32.0, Red Cell Distribution Width 12.7, Platelet Count 213, Neutrophils (%) (Auto) 74.1H, Lymphocytes (%) (Auto) 19.6L, Monocytes (%) (Auto) 5.4H, Eosinophils (%) (Auto) 0.3, Basophils (%) (Auto) 0.3, Neutrophils # (Auto) 8.8H, Lymphocytes # (Auto) 2.3, Monocytes # (Auto) 0.7, Eosinophils # (Auto) 0.0, Basophils # (Auto) 0.0, Nucleated Red Blood Cells % (auto) 0.0, Anion Gap 8, Glomerular Filtration Rate > 60.0, Calcium Level 8.7, Aspartate Amino Transf (AST/SGOT) 12, Alanine Aminotransferase (ALT/SGPT) 19, Alkaline Phosphatase 77, Total Bilirubin 0.4, Direct Bilirubin < 0.1, Total Protein 7.5, Albumin 4.1, Albumin/Globulin Ratio 1.21, Lipase 68L CBC/BMP Laboratory Tests 08/01/19 13:47 Red Blood Count 4.74, Mean Corpuscular Volume 92.8, Mean Corpuscular Hemoglobin 29.7, Mean Corpuscular Hemoglobin Concent 32.0, Red Cell Distribution Width 12.7, Neutrophils (%) (Auto) 74.1 H, Lymphocytes (%) (Auto) 19.6 L, Monocytes (%) (Auto) 5.4 H, Eosinophils (%) (Auto) 0.3, Basophils (%) (Auto) 0.3, Neutrophils # (Auto) 8.8 H, Lymphocytes # (Auto) 2.3, Monocytes # (Auto) 0.7, Eosinophils # (Auto) 0.0, Basophils # (Auto) 0.0 Home Medications Scheduled Melatonin/Chamomile Flower (Sm Melatonin 3 mg Tablet) 1 Each Tablet, 1 TAB PO QHS Scheduled PRN Acetaminophen/Pyrilamine/Caff (Midol Caplet) 1 Each Tablet, 1 EACH PO for CRAMPS Calcium Carbonate (Tums) 200 Mg Tab.chew, 1,000 MG PO Q4H PRN for HEARTBURN Ibuprofen (Ibuprofen) 800 Mg Tablet, 800 MG PO Q8H PRN for PAIN Ondansetron HCl (Zofran) 4 Mg Tablet, 4 MG PO Q6H PRN for NAUSEA Allergies Coded Allergies: cyclobenzaprine (Verified Allergy, Unknown, hives, 06/28/19) ketorolac (Verified Allergy, Unknown, hives, 06/28/19) tramadol (Verified Allergy, Unknown, hives, 06/28/19) can take ibuprofen A-FIB/CHADSVASC A-FIB History Current/History of A-Fib/PAF?: No RUTH ANN CAMERON MD Aug 01, 2019 17:46
[2019-08-01] MEDS ORDERED: METAL LOCK LOOP XX ONE (18:08)
[2019-08-01] MEDS ORDERED: MORPHINE 4 MG/ML 1ML VIAL/SYRINGE (J2270) IV PRN (18:15)
[2019-08-01] MEDS: NS 1,000 ML IV SCH (19:26)
--- NOTE | 2019-08-01 19:56 | IPNPDOC ---
Text Note Date of Service The patient was seen on 08/01/19. NOTE OBGYN consultation CC: RLQ and right flank pain Ms. Alex is a 33 yo with LMP 30Jul2019 who presented to the ER this evening for severely worsening RLQ pain radiating to the right flank and lower right back. Pain has been present for last 24-48 hours, and started when her menstrual cycle started. She describes the pain as stabbing and excruciating. Only things that relieve it are hot baths. She reports she gets these pains every time her menstrual cycle starts. She has been seen in the [place] [facility] office this past year for these symptoms but did not follow up after her initial visit. She has been to multiple ERs numerous times over the last several months for these symptoms. Confounding the issue is that she has an apparent history of kidney stones that have required stent placement and lithotripsy. She currently denies any vomiting but has had severe nausea. She denies any fevers/chills, recent trauma, diarrhea, or constipation. 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 LMP 30Jul2019. Severe dysmenorrhea and menorrhagia. Significantly worsening mood changes in days leading up to cycle. Abnormal papsmear 2009 that self resolved and normal since, no STDs, condoms for contraception OB Hx: . G1 2008 term , G2 2010 term , G3 Nov 2017 term , [id number]. Had nephrolithiasis in 3rd treated with ureteral stent PMHx: obesity (BMI 30.9), hx of depression and anxiety, insomnia, nephrolithiasis PSHx: ureteral stent 1999 and again Nov 2017, lithotripsy Jul 2018, dental procedures Meds: melatonin, prn motrin Allergies: tramadol, toradol, flexeril (all cause hives) SHx: denies tobacco, drugs. Social ETOH. FHx: denies breast, ovarian, uterine, or colon cancer Exam: General - AAOX3, sitting up in bed, pleasant and conversant, NAD CV - RRR Lungs - CTAB Abdomen - Soft, nondistended. When distracted, there is no tenderness to palpation in any quadrant. Pelvic - Declined Extremities - No edema Labs: HCG - negative CBC - 12.0>14.1/44.0<213 BMP - 141/3.7--108/25--11/0.89<85 AST/ALT - 10/15 Lipase - 68 Rads: CT Abd/pel: Impression: The appendix has a normal appearance. The gallbladder, uterus and adnexa are unremarkable. There is wall thickening of the descending colon, compatible with colitis in the appropriate clinical setting. No renal calculi. No hydronephrosis. Otherwise, negative CT of the abdomen and pelvis. Pelvic US: FINDINGS: Uterus/cervix: Uterus measures 8.4 x 3.9 x 5.1 cm. Endometrial echocomplex measures 8 mm mildly increased for stage of menstrual cycle. Right adnexa: Right ovary measures 2.4 1.6 x 1.6 cm. Volume 3.2 cc. Resistive index 0.51. Left adnexa: Left ovary measures 2.1 x 1.6 x 1.1 cm. Volume 1.9 cc. Doppler of the left ovary not performed due to excessive patient discomfort in the right lower quadrant. Free fluid: None. Bladder: Normal. IMPRESSION: Mildly increased thickness of the endometrial echo complex. Left ovary blood flow not obtained as described above. Examination otherwise unremarkable. A/P: 33 yo female with known dysmenorrhea admitted for pain control. -Non acute abdomen. No reason for acute surgical intervention. -Patient has known severe dysmenorrhea, and this appears to at least partially explain her symptoms. She has been seen and counseled before regarding treatment options for this but she did not follow up. -Ms. Alex is concerned that she may have endometriosis, and her clinical history is certainly suggestive of that. We discussed treatment options for thi s to include NSAIDs/Tylenol, OCPs, depo provera, depo lupron, and Mirena IUD. Diagnostic laparoscopy could be considered after outpatient follow up, but is not indicated at this time. -She is considering attempting to become with her spouse and is unsure about starting OCPs or other forms of control. I would recommend any formulation of OCP; combined formulations or progesterone only formulations would both be fine. If she declines hormonal treatment, would recommend strong NSAIDs/Tylenol and heating pads. -Will continue to follow. Thank you for the consultation. Leena Pack, DO VS,Sina, I+O VS, Sina, I+O Laboratory Tests 08/01/19 13:47 Red Blood Count 4.74, Mean Corpuscular Volume 92.8, Mean Corpuscular Hemoglobin 29.7, Mean Corpuscular Hemoglobin Concent 32.0, Red Cell Distribution Width 12.7, Neutrophils (%) (Auto) 74.1 H, Lymphocytes (%) (Auto) 19.6 L, Monocytes (%) (Auto) 5.4 H, Eosinophils (%) (Auto) 0.3, Basophils (%) (Auto) 0.3, Neutrophils # (Auto) 8.8 H, Lymphocytes # (Auto) 2.3, Monocytes # (Auto) 0.7, Eosinophils # (Auto) 0.0, Basophils # (Auto) 0.0 Vital Signs Date Time Temp Pulse Resp B/P (MAP) Pulse Ox O2 Delivery O2 Flow Rate FiO2 08/01/19 17:41 20 08/01/19 17:38 147/82 (103) 08/01/19 17:38 80 99 Room Air 08/01/19 12:35 97.7 LEENA PACK DO Aug 01, 2019 19:56
[2019-08-01 20:00] VITALS: BP 132/70
[2019-08-01] MEDS ORDERED: ACETAMINOPHEN *IV* 1,000 MG in IV 1 EA IV ONE (20:45)
[2019-08-02] MEDS ORDERED: diphenhydrAMINE INJ 50MG/ML VIAL (J1200) IM ONE (03:15)
[2019-08-02] MEDS ORDERED: diphenhydrAMINE 25 MG CAP PO ONE (03:45)
[2019-08-02 04:00] VITALS: BP 110/62
[2019-08-02 06:55] LABS: HEMATOCRIT 39.9 % (36.0-47.0); HEMOGLOBIN 12.6 g/dl (12.0-15.5); MEAN CORPUSCULAR HEMOGLOBIN 29.7 pg (27.0-33.0); MEAN CORPUSCULAR HGB CONC 31.6 g/dl (32.0-36.5); MEAN CORPUSCULAR VOLUME 94.1 fl (80.0-96.0); PLATELET COUNT, AUTOMATED 175 10^3/uL (150-450); RED BLOOD COUNT 4.24 10^6/uL (4.00-5.40); WHITE BLOOD COUNT 5.6 10^3/uL (4.0-10.0)
[2019-08-02] MEDS: NS 1,000 ML IV SCH (06:57)
[2019-08-02 07:21] LABS: ALBUMIN 3.2 GM/DL (3.2-5.2); ALT/SGPT 18 U/L (12-78); BILIRUBIN,TOTAL 0.6 MG/DL (0.2-1.0); BLOOD UREA NITROGEN 6 MG/DL (7-18); CALCIUM LEVEL 7.7 MG/DL (8.5-10.1); CARBON DIOXIDE LEVEL 26 MEQ/L (21-32); CHLORIDE LEVEL 107 MEQ/L (98-107); GLOMERULAR FILTRATION RATE > 60.0 (>60); GLUCOSE, FASTING 103 MG/DL (70-100); POTASSIUM SERUM 3.7 MEQ/L (3.5-5.1); SODIUM LEVEL 139 MEQ/L (136-145); TOTAL PROTEIN 6.1 GM/DL (6.4-8.2)
[2019-08-02 08:00] VITALS: BP 112/78
[2019-08-02] MEDS ORDERED: ENOXAPARIN 30 MG/0.3 ML SYR (J1650) SC SCH (09:00)
--- NOTE | 2019-08-02 11:59 | IPNPDOC ---
Text Note Date of Service The patient was seen on 08/02/19. NOTE Subjective: Patient seen and examined at bedside. Overnight patient was very upset regarding no diet, and diet was provided. Today she complains of continued RLQ pelvic pain, mostly in her vagina, with some radiation to right flank. She also today described a five month history of diarrhea, although she has had no bowel movements in the hospital. Patient stated she was not able to tolerate oral intake secondary to nausea and pelvic pain. It was noted she had a very large b reakfast this morning. She has suggested that Dilaudid would be a better option for pain control, and that 8mg zofran provides better anti-emetic relief. Objective: VITAL SIGNS: See below General: NAD, anxious HEENT: NC/AT, EOMI Lungs: CTA B/L Heart: +S1S2 Abd: soft, NT, +BS, obese, NT Ext: no edema, multiple tattoos ASSESSMENT: 33 yo female for pelvic pain. #pelvic pain - family manager c/s appreciated - possibly related to endometriosis/dysmenorrhea #endometriosis - family manager c/s appreciated - pending follow up regarding treatment options - patient stated she would opt for resolution of pain vs planned #nausea - anti-emetics limited for concern of prolong QT #DVT prophylaxis - mechanical DISPO: concern for drug seeking behavior, pending family manager f/u, pending clinical improvement VS,Fishbone, I+O VS, Fishbone, I+O Laboratory Tests 08/01/19 13:47 Red Blood Count 4.74, Mean Corpuscular Volume 92.8, Mean Corpuscular Hemoglobin 29.7, Mean Corpuscular Hemoglobin Concent 32.0, Red Cell Distribution Width 12.7, Neutrophils (%) (Auto) 74.1 H, Lymphocytes (%) (Auto) 19.6 L, Monocytes (%) (Auto) 5.4 H, Eosinophils (%) (Auto) 0.3, Basophils (%) (Auto) 0.3, Neutrophils # (Auto) 8.8 H, Lymphocytes # (Auto) 2.3, Monocytes # (Auto) 0.7, Eosinophils # (Auto) 0.0, Basophils # (Auto) 0.0 08/02/19 06:40 Red Blood Count 4.24, Mean Corpuscular Volume 94.1, Mean Corpuscular Hemoglobin 29.7, Mean Corpuscular Hemoglobin Concent 31.6 L, Red Cell Distribution Width 12.9, Calcium Level 7.7 L, Aspartate Amino Transf (AST/SGOT) 9, Alanine Aminotransferase (ALT/SGPT) 18, Alkaline Phosphatase 63, Total Bilirubin 0.6, Total Protein 6.1 L, Albumin 3.2 # Vital Signs Date Time Temp Pulse Resp B/P (MAP) Pulse Ox O2 Delivery O2 Flow Rate FiO2 08/02/19 08:00 96.9 71 16 112/78 (89) 97 08/01/19 19:54 Room Air I&O- Last 24 Hours up to 6 AM 08/02/19 06:00 Intake Total 2560 ml Output Total 200 ml Balance 2360 ml RUTH ANN CAMERON MD Aug 02, 2019 11:59
[2019-08-02] MEDS ORDERED: IBUPROFEN 600 MG TAB PO PRN (12:15)
[2019-08-02] MEDS ORDERED: ACETAMINOPH W/CODEINE #3 TAB UD PO PRN ×2 (12:15)
[2019-08-02] MEDS ORDERED: MORPHINE 4 MG/ML 1ML VIAL/SYRINGE (J2270) IV PRN (12:15)
[2019-08-02] MEDS ORDERED: ZOFR4TAB16 PO (12:35)
[2019-08-02] MEDS ORDERED: ACET1TAB16 PO (12:35)
--- NOTE | 2019-08-02 12:54 | DS.PDOC ---
Discharge Summary General Date of Admission Aug 01, 2019 at 12:35 Date of Discharge 08/02/19 Discharge Summary PROCEDURES PERFORMED DURING STAY: [None]. ADMITTING DIAGNOSES: 1. Pelvic pain/endometriosis DISCHARGE DIAGNOSES: 1. Pelvic pain/endometriosis 2. dysmenorrhea 3. non-compliance COMPLICATIONS/CHIEF COMPLAINT: Rlq Abdominal Pain. HISTORY OF PRESENT ILLNESS: 33 yo female history of endometriosis, dysmenorrhea (menstruating on admission), presented for worsening right lower quadrant pain radiating to vagina and right flank. Pain for 1 day, intermittent, worsening, no modifying factors, no ladan etite, nausea and non-bilious vomiting with oral intake. Overnight patient was very upset regarding no diet, and diet was provided. On day of discharge, she complains of continued RLQ pelvic pain, mostly in her vagina, with some radiation to right flank. She also described a five month history of diarrhea, although she has had no bowel movements in the hospital. Patient stated she was not able to tolerate oral intake secondary to nausea and pelvic pain. It was noted she had a very large breakfast this morning. She has suggested that Dilaudid would be a better option for pain control, and that 8mg zofran provides better anti-emetic relief. On discussion with tank farm gauger it was found she has been non-compliant with outpatient follow up. She was upset regarding her analgesic regimen, and wanted to leave AMA. Further discussion with tank farm gauger, agreed for discharge home with outpatient follow up. #pelvic pain - tank farm gauger c/s appreciated - possibly related to endometriosis/dysmenorrhea #endometriosis - tank farm gauger c/s appreciated - outpatient follow up - patient stated she would opt for resolution of pain vs planned DISCHARGE MEDICATIONS: Please see below. ALLERGIES: Please see below. PHYSICAL EXAMINATION ON DISCHARGE: VITAL SIGNS: Please see below. General: NAD, anxious HEENT: NC/AT, EOMI Lungs: CTA B/L Heart: +S1S2 Abd: soft, NT, +BS, obese, NT Ext: no edema, multiple tattoos LABORATORY DATA: Please see below. ACTIVITY: [As tolerated]. DIET: As tolerated. DISPOSITION: Discharge home DISCHARGE INSTRUCTIONS: 1. PCP in 3-5 days 2. portfolio strategist as scheduled DISCHARGE CONDITION: [Stable]. TIME SPENT ON DISCHARGE: Greater than 35 minutes. Vital Signs/I&Os Vital Signs Date Time Temp Pulse Resp B/P (MAP) Pulse Ox O2 Delivery O2 Flow Rate FiO2 08/02/19 12:35 18 08/02/19 08:00 96.9 71 112/78 (89) 97 08/01/19 19:54 Room Air I&O- Last 24 Hours up to 6 AM 08/02/19 06:00 Intake Total 2560 ml Output Total 200 ml Balance 2360 ml Laboratory Data Labs 24H Laboratory Tests 2 08/01/19 13:26: Urine Color YELLOW, Urine Appearance CLOUDYH, Urine pH 7.0, Urine Specific [place] 1.029, Urine Protein 1+H, Urine Glucose (UA) NEGATIVE, Urine Ketones TRACEH, Urine Blood NEGATIVE, Urine Nitrite NEGATIVE, Urine Bilirubin NEGATIVE, Urine Urobilinogen 0.2, Urine Leukocyte Esterase NEGATIVE, Urine WBC (Auto) 0, Urine RBC (Auto) 1, Urine Hyaline Casts (Auto) 0, Urine Bacteria (Auto) NEGATIVE, Urine Squamous Epithelial Cells 1, Urine Amorphous Sediment SMALLH, Urine Mucus (Auto) SMALL, Urine Sperm (Auto) , Urine Test NEGATIVE 08/01/19 13:47: Immature Granulocyte % (Auto) 0.3, White Blood Count 12.0H, Red Blood Count 4.74, Hemoglobin 14.1, Hematocrit 44.0, Mean Corpuscular Volume 92.8, Mean Dennis uscular Hemoglobin 29.7, Mean Corpuscular Hemoglobin Concent 32.0, Red Cell Distribution Width 12.7, Platelet Count 213, Neutrophils (%) (Auto) 74.1H, Lymphocytes (%) (Auto) 19.6L, Monocytes (%) (Auto) 5.4H, Eosinophils (%) (Auto) 0.3, Basophils (%) (Auto) 0.3, Neutrophils # (Auto) 8.8H, Lymphocytes # (Auto) 2.3, Monocytes # (Auto) 0.7, Eosinophils # (Auto) 0.0, Basophils # (Auto) 0.0, Nucleated Red Blood Cells % (auto) 0.0, Anion Gap 8, Glomerular Filtration Rate > 60.0, Calcium Level 8.7, Aspartate Amino Transf (AST/SGOT) 12, Alanine Aminotransferase (ALT/SGPT) 19, Alkaline Phosphatase 77, Total Bilirubin 0.4, Direct Bilirubin < 0.1, Total Protein 7.5, Albumin 4.1, Albumin/Globulin Ratio 1 .21, Lipase 68L 08/02/19 06:40: Nucleated Red Blood Cells % (auto) 0.0, Anion Gap 6L, Glomerular Filtration Rate > 60.0, Calcium Level 7.7L, Aspartate Amino Transf (AST/SGOT) 9, Alanine Aminotransferase (ALT/SGPT) 18, Alkaline Phosphatase 63, Total Bilirubin 0.6, Total Protein 6.1L, Albumin 3.2#, Albumin/Globulin Ratio 1.10, Blood Urea Nitrogen 6L, Creatinine 0.80, Sodium Level 139, Potassium Level 3.7, Chloride Level 107, Carbon Dioxide Level 26 CBC/BMP Laboratory Tests 08/01/19 13:47 Red Blood Count 4.74, Mean Corpuscular Volume 92.8, Mean Corpuscular Hemoglobin 29.7, Mean Corpuscular Hemoglobin Concent 32.0, Red Cell Distribution Width 12.7, Neutrophils (%) (Auto) 74.1 H, Lymphocytes (%) (Auto) 19.6 L, Monocytes (%) (Auto) 5.4 H, Eosinophils (%) (Auto) 0.3, Basophils (%) (Auto) 0.3, Neutrophils # (Auto) 8.8 H, Lymphocytes # (Auto) 2.3, Monocytes # (Auto) 0.7, Eosinophils # (Auto) 0.0, Basophils # (Auto) 0.0 08/02/19 06:40 Red Blood Count 4.24, Mean Corpuscular Volume 94.1, Mean Corpuscular Hemoglobin 29.7, Mean Corpuscular Hemoglobin Concent 31.6 L, Red Cell Distribution Width 12.9, Calcium Level 7.7 L, Aspartate Amino Transf (AST/SGOT) 9, Alanine Aminotransferase (ALT/SGPT) 18, Alkaline Phosphatase 63, Total Bilirubin 0.6, Total Protein 6.1 L, Albumin 3.2 # Discharge Medications Scheduled Melatonin/Chamomile Flower (Sm Melatonin 3 mg Tablet) 1 Each Tablet, 1 TAB PO QHS, (Reported) Scheduled PRN Acetaminophen with Codeine (Acetaminophen-Cod #3 Tablet) 1 Each Tablet, 1 EA PO Q6HP PRN for pain Calcium Carbonate (Tums) 200 Mg Tab.chew, 1,000 MG PO Q4H PRN for HEARTBURN, (Reported) Ibuprofen (Ibuprofen) 800 Mg Tablet, 800 MG PO Q8H PRN for PAIN, (Reported) Ondansetron HCl (Zofran) 4 Mg Tablet, 4 MG PO Q6H PRN for NAUSEA Allergies Coded Allergies: cyclobenzaprine (Verified Allergy, Unknown, hives, 06/28/19) ketorolac (Verified Allergy, Unknown, hives, 06/28/19) tramadol (Verified Allergy, Unknown, hives, 06/28/19) can take ibuprofen RUTH ANN CAMERON MD Aug 02, 2019 12:54
[2019-08-02] MEDS ORDERED: CIPROFLOXACIN 500 MG TAB PO ONE (14:00)
[2019-08-02] MEDS ORDERED: metroNIDAZOLE (FLAGYL) 500 MG TAB PO SCH (14:00)
[2019-08-03] MEDS ORDERED: CIPROFLOXACIN 500 MG TAB PO SCH (06:00)
== END 2019-08-02 14:15 | disposition home or self-care (01) ==
LOC: M ED 12:34 → M ED INP 12:35 → M PED 20:10
PROVIDERS: ADMIT Internal Medicine; ATTEND Internal Medicine
DX: R10.2 Pelvic and perineal pain (principal); N80.0 Endometriosis of uterus; N94.6 Dysmenorrhea, unspecified; Z91.19 Patient's noncompliance with other medical treatment and regimen; Z79.899 Other long term (current) drug therapy; Z88.8 Allergy status to other drugs, medicaments and biological substances
CPT/HCPCS: 36415; 74177; 76830; 76856; 80048; 80053; 80076; 81001; 83690; 84703; 85025; 85027; 93041; 93976; 96361; 96374; 96375; 96376; 99285; J2270; J2405; Q9967

== ENCOUNTER 2019-08-19 10:58 | Emergency (ER) | payer OTHER ==
[~2019-08-19] VITALS: Ht 165.1 cm; Wt 81.1 kg
[~2019-08-19 10:58] MED LIST changes: +ACET1TAB16 PO; +MIDOTAB PO; +TUMS500C PO; +ZOFR4TAB16 PO; +[UNRECOGNIZED DRUG - OTHER] PO
[2019-08-19] MEDS ORDERED: ONDANSETRON 4 MG ORAL DISINTEGRATING TAB (Q0162 PER 1MG) PO ONE (11:30)
--- NOTE | 2019-08-19 12:31 | REP ---
CT brain: 08/19/2019. Indication: Head trauma. Comparison: None. Technique: Unenhanced axial CT images of the brain were obtained from skull base to vertex. Findings: There is no acute intracranial hemorrhage, acute cortical infarction, mass effect, hydrocephalus or acute calvarial fracture. Impression: No acute intracranial process. Electronically Signed by Joel Seymour DO 08/19/2019 12:22 P
[2019-08-19] MEDS ORDERED: ACETAMINOPHEN 500 MG TAB PO ONE (12:45)
--- NOTE | 2019-08-19 13:07 | REP ---
Three views thoracic and five views lumbar spine: 08/19/2019. Indication: Thoracolumbar spine following trauma. Comparison: CT dated 08/01/2019. Findings: There is no acute fracture, subluxation or dislocation. Vertebral body alignment is within anatomical limits. The spinal canal and neural foramen appear patent. No sacral coccygeal fracture is detected. Impression: No acute fracture. Electronically Signed by Joel Seymour DO 08/19/2019 12:58 P
--- NOTE | 2019-08-19 13:19 | REP ---
Five views right ribs and chest: 08/19/2019. Indication: Right thoracic trauma. Comparison: None. Findings: There are no acute rib fractures, subluxations or dislocations. There is no lung contusion. The lungs are clear. Cardiomediastinal silhouette is unremarkable. There is no pneumothorax. Impression: No acute fracture. No acute post traumatic thoracic injury is detected. Electronically Signed by Joel Seymour DO 08/19/2019 01:10 P
[2019-08-19] MEDS ORDERED: LIDOCAINE 4% CREAM 5GM (LMX4) TOP ONE (13:30)
--- NOTE | 2019-08-19 13:38 | REP ---
Two views right hip: New 08/19/2019. Indication: Right hip trauma. Comparison: None. Findings: There is no evidence of acute fracture, subluxation or dislocation. No erosive osseous lesions are present. No acute post traumatic. soft tissue injuries are detected. Impression: No acute fracture. Electronically Signed by Joel Seymour DO 08/19/2019 01:30 P
[2019-08-19 13:55] VITALS: BP 106/56
[2019-08-19] MEDS ORDERED: ONDA4TAB6 PO (14:06)
[2019-08-19] MEDS ORDERED: LIDO1.1P EXT (14:06)
[2019-08-19] MEDS ORDERED: TYLETAB14 PO (14:06)
[2019-08-19] MEDS ORDERED: NORCO, ANEXSIA 5/325MG TABLET (HYDROcodone/ACETAMINOPHEN) PO ONE (14:15)
== END 2019-08-19 14:25 | disposition home or self-care (01) ==
LOC: M ED 10:58
DX: S20.229A Contusion of unspecified back wall of thorax, initial encounter (principal); W10.8XXA Fall (on) (from) other stairs and steps, initial encounter; Y92.018 Other place in single-family (private) house as the place of occurrence of the external cause; N80.9 Endometriosis, unspecified; Z88.5 Allergy status to narcotic agent; Z88.8 Allergy status to other drugs, medicaments and biological substances
CPT/HCPCS: 36415; 70450; 71101; 72072; 72110; 73502; 84702; 99283; Q0162

== ENCOUNTER 2019-11-20 14:12 | Emergency (ER) | payer OTHER ==
[~2019-11-20] VITALS: Ht 165.1 cm; Wt 81.8 kg
[~2019-11-20 14:12] MED LIST changes: +LIDO1.1P EXT; +ONDA4TAB6 PO
[2019-11-20] MEDS ORDERED: AZIT-12 PO (14:20)
[2019-11-20] MEDS ORDERED: GUAI1SOL PO (14:20)
[2019-11-20] MEDS ORDERED: NS 1,000 ML IV ONE (14:45)
[2019-11-20] MEDS ORDERED: METOCLOPRAMIDE INJ 10MG/2ML VIAL (J2765) IV ONE (14:45)
[2019-11-20 15:49] LABS: BASO % 0.7 % (0.0-1.0); EOS # 0.1 10^3/uL (0.0-0.5); EOS % 0.9 % (0.0-3.0); HEMATOCRIT 43.9 % (36.0-47.0); HEMOGLOBIN 13.4 g/dl (12.0-15.5); LYMPH # 1.8 10^3/uL (1.5-5.0); LYMPH % 30.8 % (24.0-44.0); MEAN CORPUSCULAR HEMOGLOBIN 28.8 pg (27.0-33.0); MEAN CORPUSCULAR HGB CONC 30.5 g/dl (32.0-36.5); MEAN CORPUSCULAR VOLUME 94.4 fl (80.0-96.0); MONO # 0.5 10^3/uL (0.0-0.8); NEUTROPHILS # 3.4 10^3/uL (1.5-8.5); NEUTROPHILS % 58.4 % (36.0-66.0); PLATELET COUNT, AUTOMATED 203 10^3/uL (150-450); RED BLOOD COUNT 4.65 10^6/uL (4.00-5.40); WHITE BLOOD COUNT 5.8 10^3/uL (4.0-10.0)
[2019-11-20 16:14] LABS: INFLUENZA A AMPLIFICATION NEGATIVE (NEGATIVE); INFLUENZA B AMPLIFICATION NEGATIVE (NEGATIVE)
[2019-11-20 16:18] LABS: ALBUMIN 4.1 GM/DL (3.2-5.2); ALT/SGPT 20 U/L (12-78); BILIRUBIN,DIRECT < 0.1 MG/DL (0.0-0.2); BILIRUBIN,TOTAL 0.3 MG/DL (0.2-1.0); BLOOD UREA NITROGEN 10 MG/DL (7-18); CALCIUM LEVEL 9.4 MG/DL (8.5-10.1); CARBON DIOXIDE LEVEL 30 MEQ/L (21-32); CHLORIDE LEVEL 104 MEQ/L (98-107); CREATININE FOR GFR 0.84 MG/DL (0.55-1.30); GLOMERULAR FILTRATION RATE > 60.0 (>60); GLUCOSE, FASTING 88 MG/DL (70-100); HCG, SERUM QUALITATIVE NEGATIVE (NEGATIVE); SODIUM LEVEL 137 MEQ/L (136-145); TOTAL PROTEIN 7.7 GM/DL (6.4-8.2)
--- NOTE | 2019-11-20 17:08 | REP ---
PA and lateral chest: There are no comparisons. I suspect there is an infiltrate medially in the right lower lobe. The lung arshad otherwise clear. Cardiac size normal. The katiana, mediastinum, skeletal structures are unremarkable. Impression: Probable infiltrate medially in the right lower lobe. Electronically Signed by Campos Mejia MD 11/20/2019 04:59 P
[2019-11-20] MEDS ORDERED: PROAAER10 INH (17:32)
[2019-11-20] MEDS ORDERED: LEVA1TAB2 PO (17:32)
[2019-11-20 17:38] VITALS: BP 120/73
== END 2019-11-20 18:02 | disposition home or self-care (01) ==
LOC: M ED 14:12
DX: J18.9 Pneumonia, unspecified organism (principal); Z88.5 Allergy status to narcotic agent; Z88.8 Allergy status to other drugs, medicaments and biological substances
CPT/HCPCS: 71046; 80048; 80076; 84703; 85025; 87040; 87502; 94760; 96361; 96374; 99284; J2765

== ENCOUNTER 2020-01-07 20:58 | Emergency (ER) | payer OTHER ==
[~2020-01-07] VITALS: Ht 165.1 cm; Wt 85.3 kg
[2020-01-07 20:58] VITALS: BP 117/56
[~2020-01-07 20:58] MED LIST changes: +AZIT-12 PO; +GUAI1SOL PO; +LEVA1TAB2 PO; +PROAAER10 INH
[2020-01-07] MEDS ORDERED: GNP28TAB2 PO (21:03)
[2020-01-07] MEDS ORDERED: UNIS25TA3 PO (21:03)
[2020-01-07] MEDS ORDERED: ACET1TAB55 PO (21:03)
== END 2020-01-07 22:00 | disposition left against medical advice (07) ==
LOC: M ED 20:58
DX: Z53.21 Procedure and treatment not carried out due to patient leaving prior to being seen by health care provider (principal)

== ENCOUNTER → 2020-04-13 | Outpatient (CLI) | payer OTHER ==
[~2020-04-13] MED LIST changes: +ACET-838 PO; +ACET1TAB55 PO; +GNP28TAB2 PO; +IBUP-1114 PO; +METF-877 PO; -NON-325T5 PO; +UNIS25TA3 PO; +tylenol with codeine PO
--- NOTE | 2020-04-14 11:01 | ECGEPIP ---
[facility] Test Date: 2020-04-13 Pat Name: JAMIN CIFUENTES Department: Room: - Gender: Female Vascular Neurologist: [facility] : 1985 Requested By: JACKIE Guzman CNM Order Number: [id number] Reading MD: Andrew Peralta Measurements Intervals [place] Rate: 82 P: 61 MS: 117 QRS: 9 QRSD: 93 T: 12 QT: 386 QTc: 453 Interpretive Statements Normal sinus rhythm Short MS interval Incomplete right bundle branch block Nonspecific T wave abnormality Comparison tracing not on file Electronically Signed on 04-14-2020 11:01:04 EDT by Andrew Peralta
== END ==
LOC: M EKG 17:11
PROVIDERS: ATTEND Advanced Practice Midwife
DX: O24.112 Pre-existing type 2 diabetes mellitus, in pregnancy, second trimester (principal); E11.9 Type 2 diabetes mellitus without complications; Z3A.18 18 weeks gestation of pregnancy

== ENCOUNTER 2020-08-12 16:18 | Outpatient (CLI) | payer OTHER ==
[~2020-08-12] VITALS: Ht 165.1 cm; Wt 87.6 kg
[~2020-08-12 16:18] MED LIST changes: -ACET-838 PO; -IBUP-1114 PO; -METF-877 PO; +NON-325T5 PO; -tylenol with codeine PO
[2020-08-12 16:40] VITALS: BP 110/73
[2020-08-12] MEDS ORDERED: METF-877 PO (16:53)
[2020-08-12] MEDS ORDERED: ZOFR8TAB24 PO (16:54)
--- NOTE | 2020-08-12 18:02 | IPNPDOC ---
Text Note Date of Service The patient was seen on 08/12/20. NOTE 34 y.o A1 LMP 11/22/2019 EDC09/14/2020 SENT FROM OFFICE COULD NOTE ESTABLISH BASELINE AND WAS 1 CM DILATED . PAST HX 12/23/2008 39 WEEKS 7 LBS. IOL . 05/20/2011 39 WEEKS 8 LBS IOL , TERM 8 LBS IOL , LABS A POS, HIV NEG RPR NEG VARICELLA IMMUNE,PAP NORMAL, URINE MIXED, G AND C NEG 1 HR GTT 176 3 HOUR 107,186,167,96 . ON METFORMIN 1000 MG. RISK AGDM2, BMI 30.0 . PHYSICAL NO DISTRESS NO CONTRACTIONS CATEGORY 1 STRIP NO DECELERATIONS BASELINE NORMAL MODERATE VARIABILITY , PLAN DISCHARGE HAS MONITORING APPOINTMENT Sina NAVAS, I+O VSSina I+O Vital Signs Date Time Temp Pulse Resp B/P (MAP) Pulse Ox O2 Delivery O2 Flow Rate FiO2 08/12/20 16:40 98.1 91 16 110/73 (85) Tod Ramos MD Aug 12, 2020 18:02
== END 2020-08-12 17:55 | disposition home or self-care (01) ==
LOC: M LDO 16:18
PROVIDERS: ATTEND Registered Nurse Maternal Newborn
DX: O26.893 Other specified pregnancy related conditions, third trimester (principal); Z3A.00 Weeks of gestation of pregnancy not specified
CPT/HCPCS: 59025; G0378; G0463

== ENCOUNTER 2020-09-05 14:14 | Inpatient (IN) | payer OTHER ==
[~2020-09-05] VITALS: Ht 165.1 cm; Wt 88.3 kg
[~2020-09-05 14:14] MED LIST changes: +METF-877 PO
[2020-09-05] MEDS ORDERED: COLA100C5 PO (14:31)
[2020-09-05 14:37] VITALS: BP 136/83
[2020-09-05 15:58] VITALS: BP 127/83
--- NOTE | 2020-09-05 16:16 | IPNPDOC ---
Obstetrical Progress Note Date of Service Sep 05, 2020 Subjective 34 yo at 38w5d with AMADOU of 14 SEP 2020 presents to L&D from the clinic for prolonged monitoring and r/o labor. She was checked in the clinic today and was found to be 3-4/80/-3. Her history is significant for DM class B and obesity. She denies leaking of fluid, vaginal bleeding, and reports positive movement. Objective Vital Signs Date Time Temp Pulse Resp B/P (MAP) Pulse Ox O2 Delivery O2 Flow Rate FiO2 09/05/20 14:37 98.5 84 136/83 (100) BPP 8/8 HAILEY 10.0 cm Assessment Heart Rate (FHR): 135 Variability: Moderate Accelerations: Present Decelerations: None Tocometer Contractions: Yes Frequency: irregular Sterile Vaginal Examination Dilation: 3 cm Effacement (%): 80% Station: -3 Cervical Consistency: Medium Cervical Position: Posterior Postion/Presentation: Cephalic presentation Assessment and Plan Age: 34 : 2 Term: 1 Pre-term: 0 Abortions: 0 Livin EGA at Admission: 38 (+5) Status: Reassuring Group B Streptococcus: Negative Additional Comments Discharge to home, certified not in labor Labor precautions discussed Recommended to keep all appointments at [facility] CASTING REPAIRER Return if symptoms persist or worsen, or sooner TRISTEN GUSMAN CNM Sep 05, 2020 16:15
--- NOTE | 2020-09-05 16:21 | REP ---
INDICATION: decels and DM class B. COMPARISON: None. TECHNIQUE: Limited OB ultrasound with bowel visible profile con amniotic fluid, below closure E Doppler and heart rate obtained. FINDINGS: There is a single intrauterine gestation in cephalic position with a closed 3.6 cm long cervix. Amniotic fluid volume is visually normal with an index of 10 and the normal range 7.2-23. The larger of the 2 fluid pockets is 5.4 cm. heart rate 152 and regular. There is a fundal grade 2 placenta without previa or abruption. Mid cord umbilical artery Doppler shows an S/D ratio 2.38 with normal forward diastolic flow and resistive index of 0.58, all of this normal. Biophysical profile: Breathing 2, tone 2, movement 2, AFV 2. IMPRESSION: : 1. Single intrauterine gestation in cephalic position with closed 3.6 cm long cervix, normal amniotic fluid volume with an HAILEY of 10 and heart rate 152 irregular. 2. Fundal grade 2 placenta without previa or abruption. Normal umbilical artery Doppler in the mid cord. 3. Bowel visible profile score: 8/8. <Electronically signed by Watson Landis > 09/05/20 [id number]
[2020-09-05] MEDS ORDERED: INSULIN REGULAR IN 0.9 % NACL 100 UNIT in IV 1 EA IV SCH ×2 (16:32)
[2020-09-05] MEDS ORDERED: LR 1,000 ML IV SCH ×2 (16:41)
[2020-09-05] MEDS ORDERED: LACTATED RINGER'S 1000 ML IV STA (16:41)
[2020-09-05] MEDS ORDERED: INSULIN IV RATE CHANGE DOCUMENTATION ML/HR XX SCH (16:45)
[2020-09-05 17:26] LABS: BASO % 0.3 % (0.0-1.0); EOS # 0.1 10^3/uL (0.0-0.5); EOS % 0.7 % (0.0-3.0); HEMATOCRIT 41.2 % (36.0-47.0); HEMOGLOBIN 13.3 g/dl (12.0-15.5); LYMPH # 1.9 10^3/uL (1.5-5.0); LYMPH % 17.7 % (24.0-44.0); MEAN CORPUSCULAR HGB CONC 32.3 g/dl (32.0-36.5); MONO # 0.6 10^3/uL (0.0-0.8); MONO % 5.4 % (0.0-5.0); NEUTROPHILS # 7.9 10^3/uL (1.5-8.5); NEUTROPHILS % 75.2 % (36.0-66.0); PLATELET COUNT, AUTOMATED 169 10^3/uL (150-450); RED BLOOD COUNT 4.43 10^6/uL (4.00-5.40); WHITE BLOOD COUNT 10.6 10^3/uL (4.0-10.0)
--- NOTE | 2020-09-05 17:42 | HPEPDOC ---
Obstetrical History & Physical General Date of Admission Sep 05, 2020 at 16:23 History of Present Illness 34 yo @ 38+5 by 1st us who is admitted for labor. her Cervix was cheched at 350 and was 3-4cm then at 4pm her water broke. she reports regular movements. denies any vaginal bleeding. patient also reports that she has been nauseaous all day and has not had anything to eat. she just had a cracker while in triage, which she tolerated well. she denies any other concerns. Chief Complaint: Contractions, term, LOF, term Information Provided By: Patient Care Care: Good Care Dating Final EDC: Sep 14, 2020 Final EDC by: 1st trimester (US) Antepartum Course Diagnos(e)s pregestational diabetes diagnosed at 17 weeks- on metformin Past Medical History Past Obstetrical History : Past Obstetrical History: Multigravida (G1- BABY BOY, TSVD, 7LB- had PPH , G2- baby girl, TSVD, 8LB, G3-BABY BOY, TSVD 8 LB, G4- AB, G5-CURRENT) CLAIM TRAINEE History: No pertinent history Past Medical History Medical History Pregestational Diabetes Family History Significant Family History: No pertinent family hx Social History Marital Status: Family situation: Spouse/partner home Psychosocial History: No pertinent psych hx * Smoker: non-smoker Alcohol: Denies Drugs: denies Abuse Violence Screening Have you been hit/kicked/slapp: No Have you been sexually assault: No Imunizations Tdap status: current Influenza Status: current Allergies Coded Allergies: cyclobenzaprine (Verified Allergy, Unknown, hives, 06/28/19) ketorolac (Verified Allergy, Unknown, hives, 06/28/19) tramadol (Verified Allergy, Unknown, hives, 06/28/19) can take ibuprofen Medications Scheduled Docusate Sodium (Colace) 100 Mg Capsule, 100 MG PO DAILY Doxylamine Succinate (Unisom Sleep Aid) 25 Mg Tablet, 25 MG PO QPM Metformin HCl (Metformin HCl) 1,000 Mg Tablet, 1 TAB PO DAILY Ondansetron HCl (Zofran) 8 Mg Tablet, 8 MG PO DAILY Pnv No.95/Ferrous Fum/Folic AC ( Vitamins Tablet) 1 Each Tablet, 1 TAB PO DAILY Scheduled PRN Acetaminophen (Acetaminophen) 325 Mg Tablet, 650 MG PO Q4-6HP PRN for pain or fever Physical Examination Physical Examination GENERAL: Alert and oriented times three. BREAST: . ABDOMEN: Gravid and non-tender to touch. FETUS: Is vertex (VTX) by sterile vaginal examination (SVE), and US in clinic this morning HEART RATE: Regular rate and rhythm. LUNGS: normal work of breathing EXTREMITIES: No edema. Vital Signs/I&O Vital Signs Date Time Temp Pulse Resp B/P (MAP) Pulse Ox O2 Delivery O2 Flow Rate FiO2 09/05/20 14:37 98.5 84 136/83 (100) Laboratory Data 24H LABS Laboratory Tests 2 09/05/20 16:30: Serology Scanned Report Hepatitis B Testing 09/05/20 16:56: Bedside Glucose (Misc Panel) 102 09/05/20 17:11: CBC/BMP Pertinent Laboratoy Data Blood Type: A- RBC Antibody Screen: Positive HIV: Negative Hepatitis B: Negative Rapid Plasma Reagin: Nonreactive Rubella: Immune Varicella: Immune Chlamydia/Gonorrhea: Negative Group B Streptococcus: Negative Quad Screen Test: Negative Vaginal Examination Dilation: 4 cm Effacement: 80% Station: -2 Cervical Consistency: Soft Cervical Position: Anterior Presentation: Cephalic presentation Assessment Variability: Moderate Accelerations: Positive Decelerations: None Tocometer Contractions: Yes Frequency: regular Duration: greater than 60 seconds Strength: palpated as strong Multi-drug resistant Organism: No history of MDRO Assessment/Plan Assessment 34 yo @ 38+5 by 1st us who is admitted for labor. SROM @ 1600 with clear fluids. hemodynamically stable. reactive NST. Pelvis Proved to 8Lb. GBS Negative, RH positive APC 1. Pregestational Diabetes- takes metformin at home. will hold metformin in labor and start on insulin Plan Admit and orient. Quality Control Checker and consent for vaginal delivery, augmentation with pitocin, operative delivery which patient declines and delivery. Diet: clear- diabetic Group B Streptococcus (GBS) [negative]. Labs and intravenous (IV) per unit Lactated Ringers (LR): Bolus 1000 mL, then at 125 mL/hr. Anticipate [normal spontaneous delivery (). C-S as appropriate. ROSALINDA SANZ MD Sep 05, 2020 17:42
[2020-09-05] MEDS ORDERED: FENTANYL 2MCG/ML ROPIVACAINE 0.2% IN 0.9% NACL 100ML IVBAG As Ordered ONE (18:13)
[2020-09-05 18:32] VITALS: BP 123/84
[2020-09-05 18:39] VITALS: BP 122/83
[2020-09-05 18:42] VITALS: BP 143/107
[2020-09-05 18:47] VITALS: BP 125/91
[2020-09-05] MEDS ORDERED: NALOXONE INJ 0.4MG/1ML VIAL (J2310 PER 1MG) IV PRN (19:30)
[2020-09-05] MEDS ORDERED: LACTATED RINGER'S 1000 ML IV PRN (19:30)
[2020-09-05] MEDS ORDERED: REFRIGERATOR IV KEYS XX PRN (19:30)
[2020-09-05] MEDS ORDERED: ONDANSETRON 4MG/2ML VIAL IV PRN (19:30)
[2020-09-05] MEDS ORDERED: EPIDURAL COMMENT XX SCH (19:30)
[2020-09-05] MEDS ORDERED: ePHEDrine SULFATE 25 MG/5 ML(5MG/ML) SYRINGE IV PRN (19:30)
[2020-09-05] MEDS ORDERED: EPIDURAL/PCA KEYS XX PRN (19:30)
[2020-09-05] MEDS ORDERED: diphenhydrAMINE 50MG/ML VIAL (J1200) IV PRN (19:30)
[2020-09-05] MEDS ORDERED: FENTANYL/ROPIVACAINE/NACL BAG 100 ML EPIDURAL SCH (19:30)
[2020-09-05] MEDS: OXYTOCIN DRIP 30 UNITS in IV 1 EA IV SCH ×2 (20:00→20:43)
--- NOTE | 2020-09-05 20:35 | IPNPDOC ---
Obstetrical Progress Note Date of Service Sep 05, 2020 Subjective To room for assessment. patient now comfortable in bed with epidural in place. FHT: 120, MOD OLIVIA,+ACCELS,-Decels--cat I tracing Ong: 3-410, pit 2 SVE: 4/80/-1, FOREBAG RUPTURED ON THIS EXAM A/P CAT I tracing. latent labor. continue labor augmentation with pitocin. Anticipate Objective Vital Signs Date Time Temp Pulse Resp B/P (MAP) Pulse Ox O2 Delivery O2 Flow Rate FiO2 09/05/20 18:47 98.2 85 125/91 (102) ROSALINDA SANZ MD Sep 05, 2020 20:35
[2020-09-06] MEDS ORDERED: ANUSOL HC CREAM 30GM TOP PRN
[2020-09-06] MEDS ORDERED: DIBUCAINE 1% OINTMENT 30GM TOP PRN
[2020-09-06] MEDS ORDERED: PROMETHAZINE 25 MG TAB PO PRN
[2020-09-06] MEDS ORDERED: DOCUSATE SODIUM 100 MG CAP PO PRN
[2020-09-06] MEDS ORDERED: MOM 30ML SUSPENSION UDC PO PRN
[2020-09-06] MEDS ORDERED: ACETAMINOPHEN 500 MG TAB PO PRN
--- NOTE | 2020-09-06 | DNPDOC ---
[facility] Delivery Note Delivery Note DATE OF DELIVERY: 09/05/2020 PREDELIVERY DIAGNOSIS: 38-5/7 weeks' gestation and labor, Pregestational Diabetes. POST DELIVERY DIAGNOSIS: Delivered, same as above PROCEDURE: Spontaneous vaginal delivery SOAKER MEAT: Dr. Rosalinda Sanz ANESTHESIA: Epidural ESTIMATED BLOOD LOSS: 200mL. FINDINGS: 7 pound 4ounce Female infant, Score 9/9, nuchal cord times one. DELIVERY SUMMARY: Patient is a 34-year-old 5 now para 4 who was admitted to labor and delivery. Patient SROM clear around 1600. Baby Girl's head was delivered without difficulty over intact perineum in OA position. Loose nuchal cord was noted and delivered through. The shoulders were then delivered without difficulty. Cord was then clamped x2 and cut by FOB after 1 min of delayed cord clamping. was placed on mother's belly. Pitocin bolus was started. Perineum was inspected and found to have a 2nd degree laceration. This was repaired with with 2-0 vicryl in he usual fashion. The placenta was then delivered spontaneously intact. Cord had a 3 vessel cord. EBL was 200 mL. The vagina and perineum were reinspected and no further lacerations were found and hemostasis was good. Fundus was firm. Patient tolerated delivery well. ROSALINDA SANZ MD Sep 06, 2020 00:00
[2020-09-06 03:00] VITALS: BP 129/75
[2020-09-06] MEDS ORDERED: ACETAMINOPH W/CODEINE #3 TAB UD PO PRN (04:00)
--- NOTE | 2020-09-06 04:46 | IPNPDOC ---
Progress Note Date of Service: Sep 06, 2020 Day#: 1 Progress Note SUBJECT: Pauline is a 34-year-old 5 now Para 4-0-14 status post uncomplicated spontaneous vaginal delivery at 38-5/7 weeks' at approximately 2300 hours on 09/05/2020 of a 7 pound 4ounce Female infant, Score 9/9, nuchal cord times one with post vaginal laceration and repair, doing well day # 1. Patient is very anxious about pain and has only take Tylenol(T3). She has a toradol allergy, but reports she has had advil before without issues. she has ambulated to the bathroom and report lochia is like period. she also complaining of acid reflux. OBJECTIVE: VITAL SIGNS: Within normal limits, afebrile. Alert and oriented times three. normal work of breathing. Heart rate: Regular rate and rhythm Abdomen: Fundus firm at U-2. Soft, NTTP. ASSESSMENT: Pauline is a 34-year-old 5 now Para 4-0-14 status post uncomplicated spontaneous vaginal delivery at 38-5/7 weeks' at approximately 2300 hours on 09/05/2020 of a 7 pound 4ounce Female infant, Score 9/9, nuchal cord times one with post vaginal laceration and repair, doing well day # 1 . Vitals within normal limits, afebrile, hemodynamically stable with no evidence of infection. PLAN: 1. continue inpatient admission today with plan to discarge tomorrow. 2. Motrin for pain, patient has been taking T3 5MG QHRS PRN also due to severe pain after delivery- anxiety seems to be a big component of patient' s pain perceptions. I discussed with patient that I recommend that she be evaluated for anxiety. patient acknowleges that she does have anxiety but has never seen anyone for and she agrees to thinking about seeing someone for counseling and coping technics. 3. Encourage ambulation- she is bottle feeding. 4.Vasectomy planned. 5. Routine PP visit in 6 weeks in clinic. 6. Discussed return precautions at length. VS, I&O, 24H, Fishbone Vital Signs/I&O Vital Signs Date Time Temp Pulse Resp B/P (MAP) Pulse Ox O2 Delivery O2 Flow Rate FiO2 09/06/20 03:00 98.1 92 18 129/75 (93) 97 I&O- Last 24 Hours up to 6 AM 09/06/20 06:00 Intake Total 1000 ml Output Total 500 ml Balance 500 ml Laboratory Data 24H LABS Laboratory Tests 2 09/05/20 16:30: Serology Scanned Report Hepatitis B Testing 09/05/20 16:56: Bedside Glucose (Misc Panel) 102 09/05/20 17:11: Immature Granulocyte % (Auto) 0.7, Neutrophils (%) (Auto) 75.2H, Lymphocytes (%) (Auto) 17.7L, Monocytes (%) (Auto) 5.4H, Eosinophils (%) (Auto) 0.7, Basophils (%) (Auto) 0.3, Neutrophils # (Auto) 7.9, Lymphocytes # (Auto) 1.9, Monocytes # (Auto) 0.6, Eosinophils # (Auto) 0.1, Basophils # (Auto) 0.0, Nucleated Red Blood Cells % (auto) 0.0 09/05/20 17:49: Syphilis Serology NONREACTIVE 09/05/20 19:10: Bedside Glucose (Misc Panel) 88 09/05/20 22:08: Bedside Glucose (Misc Panel) 82 CBC/BMP Laboratory Tests 09/05/20 17:11 ROSALINDA SANZ MD Sep 06, 2020 04:46
[2020-09-06] MEDS: FAMOTIDINE 20 MG TAB PO SCH ×2 (06:12→21:00)
[2020-09-06] MEDS ORDERED: FAMOTIDINE 20 MG TAB PO ONE (06:15)
[2020-09-06] MEDS: IBUPROFEN 800 MG TAB PO PRN (06:23)
[2020-09-06] MEDS: ACETAMINOPH W/CODEINE #3 TAB UD PO PRN ×3 (06:24→17:27)
[2020-09-06 06:31] VITALS: BP 123/78
[2020-09-06] MEDS: PRENATAL VITAMINS CHEWABLE TABLET PO SCH (09:39)
[2020-09-06 09:55] VITALS: BP 122/64
[2020-09-06] MEDS ORDERED: MOM 30ML SUSPENSION UDC PO ONE (10:30)
[2020-09-06] MEDS: ONDANSETRON 4 MG TAB PO PRN (10:37)
[2020-09-06] MEDS ORDERED: HYDROmorphone 2 MG TAB PO ONE ×2 (13:00→14:00)
[2020-09-06] MEDS ORDERED: ONDANSETRON 4 MG TAB PO SCH (14:00)
[2020-09-06 18:00] VITALS: BP 142/89
[2020-09-07] MEDS: ONDANSETRON 4 MG TAB PO PRN ×2 (00:18→10:31)
[2020-09-07] MEDS: ACETAMINOPH W/CODEINE #3 TAB UD PO PRN ×3 (00:18→08:46)
[2020-09-07] MEDS: IBUPROFEN 800 MG TAB PO PRN (04:40)
[2020-09-07 05:48] VITALS: BP 114/66
--- NOTE | 2020-09-07 07:55 | IPNPDOC ---
Progress Note Date of Service: Sep 07, 2020 Day#: 1 Progress Note SUBJECT: Pauline is a 34yo now status post uncomplicated spontaneous vaginal delivery doing well day # 2. She has been ambulating, voiding spontaneously without issue and tolerating regular diet. Reports lochia is decreasing. She was noted to have poor pain control yesterday and required 2mg dilaudid PO but has since had adequate pain controlled on oral pain meds. OBJECTIVE: VITAL SIGNS: Within normal limits, afebrile. Alert and oriented times three. Abdomen: Fundus firm at U-2. Soft, NTTP. : no edema, small lochia ASSESSMENT: Pauline is a 34yo now status post uncomplicated spontaneous vaginal delivery doing well day # 2. Vitals within normal limits, afebrile, hemodynamically stable with no evidence of infection. PLAN: 1. Discharge to home today 2. Tylenol #3 and Motrin for pain. 3. Encourage ambulation OOB as tolerated 4. Encourage diabetic diet as tolerated 5. Routine PP visit in 6 weeks in clinic. 6. Discussed return precautions at length. VS, I&O, 24H, Fishbone Vital Signs/I&O Vital Signs Date Time Temp Pulse Resp B/P (MAP) Pulse Ox O2 Delivery O2 Flow Rate FiO2 09/07/20 06:13 18 Room Air 09/07/20 05:48 97.0 77 114/66 (82) 09/06/20 18:00 97 I&O- Last 24 Hours up to 6 AM 09/07/20 06:00 Intake Total 300 ml Balance 300 ml PHAM VILLARREAL DO Sep 07, 2020 07:28
[2020-09-07] MEDS: FAMOTIDINE 20 MG TAB PO SCH (08:21)
[2020-09-07] MEDS: PRENATAL VITAMINS CHEWABLE TABLET PO SCH (08:45)
== END 2020-09-07 11:46 | disposition home or self-care (01) | DRG 807 ==
LOC: M LDO 14:14 → M LDI 16:23 → M OBS 09-06 02:48
PROVIDERS: ADMIT Registered Nurse Maternal Newborn; ATTEND Obstetrics & Gynecology
PROC: 10E0XZZ Delivery of Products of Conception, External Approach (ICD-10-PCS; principal; 2020-09-05)
PROC: 0KQM0ZZ Repair Perineum Muscle, Open Approach (ICD-10-PCS; 2020-09-05)
DX: O24.12 Pre-existing type 2 diabetes mellitus, in childbirth (principal); Z37.0 Single live birth; Z3A.38 38 weeks gestation of pregnancy; O69.81X0 Labor and delivery complicated by cord around neck, without compression, not applicable or unspecified; O70.1 Second degree perineal laceration during delivery

== ENCOUNTER 2020-09-21 17:17 | Emergency (ER) | payer OTHER ==
[~2020-09-21] VITALS: Ht 170.2 cm; Wt 7.6 kg
[2020-09-21] MEDS ORDERED: tylenol with codeine PO (17:39)
[2020-09-21] MEDS ORDERED: IBUP-1114 PO (17:39)
[2020-09-21] MEDS ORDERED: ALBUTEROL 90 MCG/ACT 8GM HFA INHALER INH ONE (19:15)
[2020-09-21 19:39] VITALS: BP 151/94
== END 2020-09-21 19:43 | disposition home or self-care (01) ==
LOC: M ED 17:17
DX: U07.1 COVID-19 (principal); B34.9 Viral infection, unspecified; K21.9 Gastro-esophageal reflux disease without esophagitis; F41.9 Anxiety disorder, unspecified; F32.9 Major depressive disorder, single episode, unspecified; Z87.442 Personal history of urinary calculi; Z88.5 Allergy status to narcotic agent; Z88.6 Allergy status to analgesic agent; Z88.8 Allergy status to other drugs, medicaments and biological substances; Z79.899 Other long term (current) drug therapy

== ENCOUNTER 2021-05-02 07:30 | Inpatient (IN) | payer OTHER ==
[2021-05-02] VITALS (9 sets, daily range): BP systolic 118–138; BP diastolic 58–80
[~2021-05-02] VITALS: Ht 165.1 cm; Wt 86.1 kg
[~2021-05-02 07:30] MED LIST changes: +ACET325C5 PO; +ACET32TAB PO; +ACETAMINOPHEN 500 MG TAB PO ONE; +CARA1TAB6 PO; +FLUTISP; +GABAPENTIN 300 MG CAP PO ONE; +IBUP-1022 PO; +IBUP-1114 PO; +LIDOCAINE 1% MDV 20ML VIAL SQ PRN; +LR 1,000 ML IV ONE; +MELA5TAB21 PO; -NON-325T5 PO; +NORG0.25; +PROT1TAB2 PO; +ceFAZolin SOD 2 GM in IV 1 EA IV ONE; +tylenol with codeine PO
[2021-05-02] MEDS ORDERED: ACET-716 PO (11:15)
[2021-05-02] MEDS ORDERED: ZOFR4TAB16 PO (11:15)
[2021-05-02 11:19] LABS: HEMATOCRIT 42.3 % (36.0-47.0); HEMOGLOBIN 13.4 g/dl (12.0-15.5); MEAN CORPUSCULAR HEMOGLOBIN 29.9 pg (27.0-33.0); MEAN CORPUSCULAR HGB CONC 31.7 g/dl (32.0-36.5); MEAN CORPUSCULAR VOLUME 94.4 fl (80.0-96.0); PLATELET COUNT, AUTOMATED 204 10^3/uL (150-450); RED BLOOD COUNT 4.48 10^6/uL (4.00-5.40); WHITE BLOOD COUNT 5.5 10^3/uL (4.0-10.0)
[2021-05-02] MEDS ORDERED: FLUORESCEIN 10% (100MG/ML) 5 ML VIAL As Ordered ONE (11:30)
[2021-05-02] MEDS ORDERED: BUPIVACAINE HCL 0.25% 30ML VIAL As Ordered ONE (11:30)
[2021-05-02 11:53] LABS: BLOOD UREA NITROGEN 11 MG/DL (7-18); CALCIUM LEVEL 8.9 MG/DL (8.5-10.1); CARBON DIOXIDE LEVEL 25 MEQ/L (21-32); CHLORIDE LEVEL 107 MEQ/L (98-107); CREATININE FOR GFR 0.71 MG/DL (0.55-1.30); GLOMERULAR FILTRATION RATE > 60.0 (>60); GLUCOSE, FASTING 92 MG/DL (70-100); POTASSIUM SERUM 4.3 MEQ/L (3.5-5.1); SODIUM LEVEL 139 MEQ/L (136-145)
[2021-05-02 11:54] LABS: HCG, SERUM QUALITATIVE NEGATIVE (NEGATIVE)
[2021-05-02] MEDS ORDERED: ONDANSETRON 4MG/2ML VIAL As Ordered ONE (12:22)
[2021-05-02] MEDS ORDERED: MIDAZOLAM INJ 2MG/2ML VIAL (J2250 PER 1MG) As Ordered ONE ×2 (12:22→13:11)
[2021-05-02] MEDS ORDERED: dexameTHASONE 4 MG/ML 1ML VIAL (J1100 PER 1MG) As Ordered ONE (12:22)
[2021-05-02] MEDS ORDERED: propofoL 200 MG/20 ML VIAL As Ordered ONE ×3 (12:22→15:52)
[2021-05-02] MEDS ORDERED: fentaNYL 100 MCG/2 ML INJECTION (J3010) As Ordered ONE ×3 (12:22→16:50)
[2021-05-02] MEDS ORDERED: ROCURONIUM BROMIDE 50 MG/5 ML VIAL As Ordered ONE ×3 (12:22→15:52)
[2021-05-02] MEDS ORDERED: LIDOCAINE 2% 100MG/5ML SDV (FOR ANES.) As Ordered ONE (12:22)
[2021-05-02] MEDS ORDERED: SUGAMMADEX SODIUM 500 MG/5 ML VIAL (BRIDION) As Ordered ONE (12:22)
[2021-05-02] MEDS ORDERED: SCOPOLAMINE 1MG TRANSDERMAL PATCH TOP ONE (12:25)
[2021-05-02] MEDS ORDERED: MIDAZOLAM INJ 2MG/2ML VIAL (J2250 PER 1MG) IV ONE (12:35)
[2021-05-02] MEDS ORDERED: MIDAZOLAM INJ 2MG/2ML VIAL (J2250 PER 1MG) IV PRN (12:35)
--- NOTE | 2021-05-02 12:37 | IPNPDOC ---
Text Note Date of Service The patient was seen on 05/02/21. NOTE Patient seen before surgery. We discussed pain management strategies postop eratively. Goal will be for early ambulation and PO analgesics as soon as possible. Will be following ERAS protocol. TAP block before surgery. We again reviewed expectations for narcotic prescriptions. Will certainly treat her postoperative pain, but will not chronically supply her with narcotics. All patient questions answered. Ramone VSSina, I+O VSSina I+O Laboratory Tests 05/02/21 11:07 Vital Signs Date Time Temp Pulse Resp B/P (MAP) Pulse Ox O2 Delivery O2 Flow Rate FiO2 05/02/21 11:16 98.6 70 18 11/ (35) 97 Room Air LEENA GOTTLIEB DO May 02, 2021 12:37
[2021-05-02] MEDS ORDERED: METOCLOPRAMIDE INJ 10MG/2ML VIAL (J2765 PER 1) As Ordered ONE (13:16)
[2021-05-02] MEDS ORDERED: GLYCOPYRROLATE INJ 0.2 MG/ML 2 ML VIAL As Ordered ONE (13:45)
[2021-05-02] MEDS ORDERED: ePHEDrine SULFATE 25 MG/5 ML(5MG/ML) SYRINGE As Ordered ONE (13:47)
[2021-05-02] MEDS ORDERED: LIDOCAINE W/EPINEPHRINE 1% 20ML VIAL As Ordered ONE (14:52)
[2021-05-02] MEDS ORDERED: HYDROmorphone HCL 2 MG/ML 1ML VIAL (J1170) As Ordered ONE (15:52)
[2021-05-02] MEDS ORDERED: MORPHINE 30 MG TAB **MSIR PO PRN ×2 (16:30)
[2021-05-02] MEDS ORDERED: MOM 30ML SUSPENSION UDC PO PRN (16:30)
[2021-05-02] MEDS ORDERED: IBUPROFEN 800 MG TAB PO PRN (16:30)
[2021-05-02] MEDS ORDERED: METOCLOPRAMIDE INJ 10MG/2ML VIAL (J2765 PER 1) IV PRN ×2 (16:30→17:20)
[2021-05-02] MEDS ORDERED: ONDANSETRON 4MG/2ML VIAL IV PRN ×3 (16:30→19:10)
[2021-05-02] MEDS ORDERED: MORPHINE 10 MG/ML 1ML VIAL (J2270) IV PRN (16:35)
[2021-05-02] MEDS: fentaNYL 100 MCG/2 ML INJECTION (J3010) IV PRN ×4 (16:50→17:14)
[2021-05-02] MEDS ORDERED: PILL CUTTER 1 EACH XX PRN (16:50)
[2021-05-02] MEDS ORDERED: LR 1,000 ML IV SCH (17:20)
[2021-05-02] MEDS: PERCOCET 5MG/325MG TAB PO PRN ×2 (17:23→18:07)
[2021-05-02] MEDS: HYDROMORPHONE HCL 0.5 MG/ 0.5 ML SYRINGE (J1170 PER 1) IV PRN ×2 (17:29→17:44)
[2021-05-02] MEDS: ACETAMINOPHEN 500 MG TAB PO SCH (18:00)
[2021-05-02] MEDS: MORPHINE 2 MG/ML 1ML VIAL (J2270) IV PRN ×2 (18:02→18:14)
[2021-05-02] MEDS ORDERED: MORPHINE 4 MG/ML 1ML VIAL/SYRINGE (J2270) As Ordered ONE (18:02)
[2021-05-02] MEDS ORDERED: diphenhydrAMINE 50MG/ML VIAL (J1200) IV PRN (19:10)
[2021-05-02] MEDS ORDERED: MORPHINE 1MG/ML IN 0.9% NACL 100ML IV BAG IV PRN (19:10)
[2021-05-02] MEDS ORDERED: NALOXONE INJ 0.4MG/1ML VIAL (J2310 PER 1MG) IV PRN (19:10)
[2021-05-02] MEDS ORDERED: EPIDURAL/PCA KEYS XX PRN (19:10)
[2021-05-02] MEDS ORDERED: NS 1,000 ML IV SCH (19:10)
--- NOTE | 2021-05-02 19:10 | RO ---
OPERATIVE NOTE DATE OF OPERATION: 05/02/2021 PREOPERATIVE DIAGNOSIS: Severe dysmenorrhea and dyspareunia. POSTOPERATIVE DIAGNOSIS: Severe dysmenorrhea and dyspareunia. PROCEDURE: Laparoscopic-assisted vaginal hysterectomy, bilateral salpingectomy and cystoscopy. SURGEON: Dr. Efrain Pack AUTO HEATER MECHANIC: Dr. Kierra Jenkins ANESTHESIA: General anesthesia. IV FLUIDS: 1300 mL LR. URINE OUTPUT: 350 mL via Rendon catheter. ESTIMATED BLOOD LOSS: 100 mL ANTIBIOTICS: 2 gm of Ancef before case start. COMPLICATIONS: None. OPERATIVE FINDINGS: Normal appearing liver and gallbladder, normal appearing gastric curve. Uterus somewhat globular in appearance but normal. Pelvic vasculature somewhat dilated consistent with pelvic congestion syndrome. Ovaries normal bilaterally. Fallopian tubes normal bilaterally. No gross evidence of endometriosis. DETAILED PROCEDURE DESCRIPTION: The risks, benefits, indications, and alternatives of the procedure were reviewed with the patient and informed consent was obtained. The patient was taken to the operating room where general anesthesia was obtained without difficulty. The patient was then placed in the lithotomy position using gel-padded Srinivasa stirrups. The patient's arms were gently tucked to her sides with padding. An exam under anesthesia was then performed which revealed an 8-10 week size mobile, anteverted uterus with minimal descent. She was then prepped and draped in the usual sterile fashion. A Rendon catheter was placed. A surgical timeout was then performed and the patient's identify and planned procedure were verified by the operating team. A sterile speculum was placed in the patient's vagina and the cervix was visualized. A single stitch of 0 Vicryl was used to grasp the anterior lip of the cervix. A [employer] uterine manipulator was then inserted into the uterus as a means to manipulate the uterus. The speculum was then removed from the vagina. Gloves were then exchanged and attention was turned to the patient's abdomen where a 5 mm skin incision was made in the inferior aspect of the umbilicus after injection of Marcaine. A 5 mm trocar and sleeve were then carefully introduced into the peritoneal cavity under direct visualization at a 90 degree angle while tenting up the abdominal wall. Intraperitoneal placement was confirmed under direct visualization and entry pressure was noted to be less than 5 mmHg. A pneumoperitoneum was then obtained with several liters of CO2 gas. Upon entry into the peritoneal cavity, structures immediately below the incision were inspected and found to be free of injury. General inspection of the pelvic organs, uterus, fallopian tubes, ovaries, liver and gallbladder, greater curve of the stomach were inspected and found to be normal. The pelvic vessels did appear somewhat dilated and serpentine, consistent with pelvic congestion syndrome. Two additional 5 mm trocars, one in the left lateral aspect of the abdominal wall and one in the right lateral aspect of the abdominal wall were then placed under direct laparoscopic visualization after injection of Marcaine. The ureters were identified and found to be well away from the operative field. Using the LigaSure electrocautery, the left fallopian tube was dissected away from the mesosalpinx from the fimbriated end to the isthmic portion, taking care to cauterize all vasculature within the mesosalpinx. The fallopian tube was then amputated at its connection to the uterine cornua and removed from the patient's abdomen. Attention was then turned to the patient's right fallopian tube which in a similar fashion lifted by a blunt grasper and removed with the LigaSure electrocautery. The tubes were sent to pathology for review. The operative sites were noted to be hemostatic. The bilateral round ligaments were then ligated and the utero-ovarian ligaments were then ligated as close as possible to the uterine corpus with a LigaSure. The pedicles were inspected and excellent hemostasis was noted. The uterine arteries on both sides were then identified, skeletonized, electro-dissected, and ligated using LigaSure electrocautery. The uterosacral ligaments and cardinal ligaments were also transected bilaterally using the LigaSure. The anterior bladder flap was then created using the LigaSure and blunt dissection with an atraumatic grasper. Attention was then turned back to the patient's vagina. A weighted speculum was placed in the patient's vagina and the cervix was visualized. The uterine manipulator was then removed. The cervix was then injected circumferentially with approximately 10 mL of Lidocaine with epinephrine. The cervix was then incised circumferentially using Bovie cautery. The posterior vaginal mucosa was dissected off the cervix and the peritoneum was visualized. This was then grasped with pickups and entered sharply using Metzenbaum scissors. The posterior peritoneum was then tacked to the vaginal mucosa with 0 Vicryl. Next, the uterosacral ligaments were clamped with Keith clamps on both sides, transected and suture ligated with 0 Vicryl bilaterally. At this time, hemostasis was assured. A retractor was then placed in the anterior and posterior cul-de-sac to allow excellent exposure while displacing the bladder and rectum. The cardinal ligaments were then clamped on both sides, transected and suture ligated in a similar fashion. Excellent hemostasis was noted throughout this process. Next, attention was turned anteriorly. The anterior vaginal mucosa was dissected off the underlying pubocervical fascia using Metzenbaum scissors. The anterior cul-de-sac was then entered sharply with Metzenbaum scissors. The remainder of the uterine pedicles were then suture ligated and transected. The uterus and cervix were then delivered through the vagina. The vaginal cuff was closed. The cuff was closed in a running fashion with 0 Vicryl suture. An additional two [id number] sutures were then placed in the midline of the cuff to achieve excellent hemostasis. Irrigation was then performed and hemostasis was appreciated. The cystoscope was then primed and advanced through the urethra into the bladder. Both ureteral orifices were identified and brisk bilateral efflux of fluorescein urine was visualized. A survey of the bladder showed no defects, lesions or sutures. The cystoscope was then removed and the patient's Rendon catheter was replaced. Gloves were then exchanged and attention was then returned back to the abdomen. All pedicles were inspected and found to be hemostatic. The cuff was inspected. There was mild oozing, bleeding which was controlled with LigaSure cautery in the midline of the posterior peritoneum. FloSeal was then placed at the cuff to achieve additional hemostasis. Inspection of the cuff without pneumoperitoneum revealed no active bleeding. All ports were then removed under direct visualization and hemostasis was appreciated at the trocar sites. The skin incision was then closed with 4-0 Monocryl suture and covered with Dermabond. A manual exam was then performed and the vagina demonstrated excellent suspension and elevation. A vaginal sweep was performed and confirmed no retained foreign objects remained in the vagina. The vagina was noted to be hemostatic. At the completion of the case, the sponge, instrument and needle counts were correct x2. The patient was taken to the PACU in stable condition. [facility] HOSPITALAngie
--- NOTE | 2021-05-02 19:40 | IPNPDOC ---
Text Note Date of Service The patient was seen on 05/02/21. NOTE Patient seen this evening. Pauline reports significant lower pelvic pain and is asking for a NUCLEAR REACTOR TECHNICIAN. She denies any nausea or vomiting. Vitals - HR 90s, BP 110s/60s, afebrile, 100% O2 sat on RA General - Sitting in bed, tearful Abdomen - Soft, nondistended. Tender to palpation. No peritoneal signs. Extremities - SCDs in place - Rendon bag at bedside with ~400ml of urine UO - appropriate Pauline reports significant pelvic pain and requests a NUCLEAR REACTOR TECHNICIAN. Vitals stable and UO excellent. Low suspicion for any acute surgical bleeding or complication. Will order morphine NUCLEAR REACTOR TECHNICIAN. Continue scheduled PO motrin and PO tylenol. Encourage ambulation this evening if possible. Rendon can come out when ambulatory. All questions answered. Ramone VS,Sina, I+O VSSina I+O Laboratory Tests 05/02/21 11:07 Vital Signs Date Time Temp Pulse Resp B/P (MAP) Pulse Ox O2 Delivery O2 Flow Rate FiO2 05/02/21 18:40 97.6 90 20 118/62 (80) 100 Room Air 05/02/21 18:15 2.0 LEENA GOTTLIEB DO May 02, 2021 19:40
[2021-05-02] MEDS: ONDANSETRON 4MG/2ML VIAL IV PRN (20:30)
[2021-05-02] MEDS: IBUPROFEN 800 MG TAB PO SCH (20:31)
[2021-05-02] MEDS: diazePAM 5MG TABLET PO SCH (21:06)
[2021-05-02] MEDS: diphenhydrAMINE 25MG CAP PO PRN (21:29)
[2021-05-03] VITALS: BP 164/78
[2021-05-03] MEDS: ACETAMINOPHEN 500 MG TAB PO SCH ×6 (00:04→23:11)
[2021-05-03 04:00] VITALS: BP 128/70
[2021-05-03] MEDS: diphenhydrAMINE 25MG CAP PO PRN ×4 (04:05→21:22)
[2021-05-03] MEDS: IBUPROFEN 800 MG TAB PO SCH ×4 (04:05→20:00)
[2021-05-03] MEDS: ONDANSETRON 4MG/2ML VIAL IV PRN (05:02)
--- NOTE | 2021-05-03 07:50 | IPNPDOC ---
Text Note Date of Service The patient was seen on 05/03/21. NOTE 35 yo female POD#1 s/p uncomplicated LAVH, BS, and cysto currently recovering on the fisher. Pain control was a bit of an issue yesterday and she required a ATG JAVA DEVELOPER overnight. This morning Pauline reports she has continued pain. She is ambulating, tolerating a regular diet, and has voided on her own without issues. Vitals - VSS, afebrile, normotensive, non tachycardic General - AAOX3, sitting up in bed, NAD Abdomen - Soft, nondistended. Bowel sounds present. Port sites well appearing and covered with dermabond. Mild bruising noted around port sites. Abdomen tender to palpation, but pain is distractible. Extremities - No edema UO - excellent Labs: Pending AM CBC, CMP Objectively, Pauline is recovering well. However, she continues to endorse severe pain and is asking for dilaudid and morphine. I do have concerns for drug seeking behavior. She reports that she does not feel well enough to go home. Will DC ATG JAVA DEVELOPER today and transition to PO analgesics. I discussed with her that I will supply her with a short course of narcotics to go home with, but I will not be chronically supplying her with them. She agrees that she would like to go home tomorrow as long as she feels that her pain is well controlled. Continue to encourage ambulation. All patient questions answered. Sina Kwon, I+O Sina NAVAS, I+O Laboratory Tests 05/02/21 11:07 Vital Signs Date Time Temp Pulse Resp B/P (MAP) Pulse Ox O2 Delivery O2 Flow Rate FiO2 05/03/21 04:00 97.4 78 16 128/70 (89) 97 Nasal Cannula 2.0 I&O- Last 24 Hours up to 6 AM 05/03/21 06:00 Intake Total 2620 ml Output Total 2700 ml Balance -80 ml LEENA GOTTLIEB DO May 03, 2021 07:50
[2021-05-03] MEDS ORDERED: HYDROmorphone 2 MG TAB PO SCH (08:00)
[2021-05-03 08:53] LABS: HEMATOCRIT 38.1 % (36.0-47.0); HEMOGLOBIN 11.7 g/dl (12.0-15.5); MEAN CORPUSCULAR HEMOGLOBIN 29.7 pg (27.0-33.0); MEAN CORPUSCULAR HGB CONC 30.7 g/dl (32.0-36.5); MEAN CORPUSCULAR VOLUME 96.7 fl (80.0-96.0); PLATELET COUNT, AUTOMATED 185 10^3/uL (150-450); RED BLOOD COUNT 3.94 10^6/uL (4.00-5.40); WHITE BLOOD COUNT 12.6 10^3/uL (4.0-10.0)
[2021-05-03 09:21] LABS: ALBUMIN 3.5 GM/DL (3.2-5.2); ALT/SGPT 18 U/L (12-78); BILIRUBIN,TOTAL 0.1 MG/DL (0.2-1.0); BLOOD UREA NITROGEN 9 MG/DL (7-18); CALCIUM LEVEL 8.6 MG/DL (8.5-10.1); CARBON DIOXIDE LEVEL 27 MEQ/L (21-32); CHLORIDE LEVEL 109 MEQ/L (98-107); GLOMERULAR FILTRATION RATE > 60.0 (>60); GLUCOSE, FASTING 89 MG/DL (70-100); POTASSIUM SERUM 3.9 MEQ/L (3.5-5.1); SODIUM LEVEL 144 MEQ/L (136-145); TOTAL PROTEIN 6.4 GM/DL (6.4-8.2)
[2021-05-03] MEDS: HYDROmorphone 2 MG TAB PO SCH ×4 (09:49→22:58)
[2021-05-03 10:00] VITALS: BP 119/61
[2021-05-03] MEDS: MORPHINE 4 MG/ML 1ML VIAL/SYRINGE (J2270) IV PRN ×3 (12:01→21:23)
[2021-05-03] MEDS: SIMETHICONE 80MG CHEW TAB PO PRN ×2 (12:01→19:15)
[2021-05-03] MEDS ORDERED: MORPHINE 2 MG/ML 1ML VIAL (J2270) IV ONE (13:00)
--- NOTE | 2021-05-03 13:22 | IPNPDOC ---
Subjective Date Seen The patient was seen on 05/03/21. Subjective Chief Complaint/HPI Pt complaining of persistent pain unresponsive to dilaudid and morphine. Pt refusing tylenol and motrin per nursing staff as she states these do not work for her. Per nursing staff and patient, she is ambulating around her room and to the bathroom, tolerating a regular diet (ate macaroni and cheese for lunch), and voiding without difficulty. Denies N/V. States that pain is primarily at her incision sites and in her low pelvic region. She has also tried a heating pad which she states did not work well for her. States that the pain has only been controlled with FILTER SCREEN CLEANER and would like something that she can control so that she can have immediate pain relief whenever she feels it is getting worse. She is otherwise meeting all postoperative milestones. Objective Physical Examination General Exam: Positive: Alert, No Acute Distress (Pt talking angrily throughout visit, intermittently stating she is in pain without any other physical signs of distress.) Eye Exam: Positive: PERRLA Chest Exam: Positive: Normal air movement Heart Exam: Positive: Rate Normal Abdomen Exam: Positive: Soft, Tenderness (reports tenderness to palpation around incision sites and in suprapubic region) Psych Exam: Positive: Oriented x 3 Other physical findings Vital Signs Date Time Temp Pulse Resp B/P (MAP) Pulse Ox O2 Delivery O2 Flow Rate FiO2 05/03/21 13:07 16 05/03/21 12:11 16 05/03/21 12:01 16 05/03/21 10:19 16 05/03/21 10:00 98.2 69 15 119/61 (80) 97 Room Air 05/03/21 09:49 16 05/03/21 04:00 97.4 78 16 128/70 (89) 97 Nasal Cannula 2.0 05/03/21 00:00 98.7 98 18 164/78 (106) 98 Nasal Cannula 2.0 05/02/21 23:00 98.5 101 16 138/78 (98) 99 Nasal Cannula 2.0 05/02/21 22:00 98.1 94 18 122/77 (92) 99 Nasal Cannula 2.0 05/02/21 21:00 98.0 104 18 129/65 (86) 96 Nasal Cannula 2.0 05/02/21 20:30 97.6 95 18 122/58 (79) 100 Room Air 7/6/21 20:00 98.1 90 20 126/63 (84) 99 Room Air 05/02/21 19:40 98.1 69 20 121/67 (85) 98 Room Air 05/02/21 19:10 98.6 95 18 136/80 (98) 99 Room Air 05/02/21 18:40 97.6 90 20 118/62 (80) 100 Room Air 05/02/21 18:15 94 18 111/60 (77) 100 Nasal Cannula 2.0 05/02/21 18:14 97.5 91 18 97/52 98 Nasal Cannula 2.0 05/02/21 18:07 97.5 91 18 97/52 98 Nasal Cannula 2.0 05/02/21 18:02 97.5 91 18 97/52 98 Nasal Cannula 2.0 05/02/21 18:00 87 18 110/60 (77) 99 Nasal Cannula 2.0 05/02/21 17:45 90 18 107/59 (75) 98 Nasal Cannula 2.0 05/02/21 17:44 97.5 91 18 97/52 98 Nasal Cannula 2.0 05/02/21 17:30 90 18 101/61 (74) 97 Nasal Cannula 2.0 05/02/21 17:29 97.5 91 18 97/52 98 Nasal Cannula 2.0 05/02/21 17:23 97.5 91 18 97/52 98 Nasal Cannula 2.0 05/02/21 17:15 87 18 101/58 (72) 98 Nasal Cannula 2.0 05/02/21 17:14 97.5 91 18 97/52 98 Nasal Cannula 2.0 05/02/21 17:06 97.5 91 18 97/52 98 Nasal Cannula 2.0 05/02/21 17:00 91 18 97/52 (67) 98 Nasal Cannula 2.0 05/02/21 16:58 97.5 91 18 97/52 98 Nasal Cannula 2.0 05/02/21 16:55 95 18 111/62 (78) 95 Nasal Cannula 2.0 05/02/21 16:50 91 18 116/57 (76) 95 Nasal Cannula 2.0 05/02/21 16:50 97.5 91 18 97/52 98 Nasal Cannula 2.0 05/02/21 16:45 103 18 117/57 (77) 96 Nasal Cannula 2.0 05/02/21 16:40 87 18 122/63 (82) 94 Nasal Cannula 2.0 05/02/21 16:35 97.5 106 18 130/71 (90) 95 Nasal Cannula 2.0 Intake & Output 05/03/21 06:00 Intake Total 2620 ml Output Total 2700 ml Balance -80 ml Laboratory Tests 05/03/21 08:37: White Blood Count 12.6H, Red Blood Count 3.94L, Hemoglobin 11.7L, Hematocrit 38.1, Mean Corpuscular Volume 96.7H, Mean Corpuscular Hemoglobin 29.7, Mean Corpuscular Hemoglobin Concent 30.7L, Red Cell Distribution Width 12.4, Platelet Count 185, Nucleated Red Blood Cells % (auto) 0.0, Sodium Level 144, Potassium Level 3.9, Chloride Level 109H, Carbon Dioxide Level 27, Anion Gap 8, Blood Urea Nitrogen 9, Creatinine 0.80, Glomerular Filtration Rate > 60.0, Fasting Glucose 89, Calcium Level 8.6, Total Bilirubin 0.1L, Aspartate Amino Transf (AST/SGOT) 7, Alanine Aminotransferase (ALT/SGPT) 18, Alkaline Phosphatase 41L, Total Protein 6.4, Albumin 3.5, Albumin/Globulin Ratio 1.2 Current Medications Medications (Trade) Dose Ordered Sig/Alexis Route PRN Reason Start Time Stop Time Status Last Admin Dose Admin Acetaminophen (Tylenol Tab) 1,000 mg Q6H PO 05/02/21 18:00 05/03/21 12:46 1,000 MG Diazepam (Valium) 5 mg QHS PO 05/02/21 21:00 05/02/21 21:06 5 MG Diphenhydramine HCl (Benadryl) 25 mg Q8HP PRN PO ITCHING 05/02/21 20:55 05/03/21 09:49 25 MG Hydromorphone HCl (Dilaudid) 2 mg Q4H PO 05/03/21 10:00 05/03/21 09:49 2 MG Ibuprofen (Advil) 800 mg Q8H PO 05/02/21 20:00 05/03/21 12:46 800 MG Morphine Sulfate (Morphine Sulfate Inj) 3 mg Q3HP PRN IV SEVERE PAIN (PS 8-10) 05/03/21 07:30 05/03/21 12:01 3 MG Ondansetron HCl (ZOFRAN INJection) 4 mg Q6HP PRN IV NAUSEA 05/02/21 16:44 05/03/21 05:02 4 MG Simethicone (Mylicon) 80 mg QIDP PRN PO GAS PAIN 05/02/21 16:30 05/03/21 12:01 80 MG Assessment /Plan Assessment 35yo female POD #1 from TLH/BS/cysto Discussed goals of transitioning to PO pain meds so that patient may be discharged tomorrow. Discussed that IV pain meds are typically reserved for patients who cannot tolerate PO intake, and goal is to wean off of FILTER SCREEN CLEANER as soon as possible following surgery. Also discussed importance of expectation manag ement, in that goal is to make pain manageable to allow daily tasks (ambulating, eating, etc), and not to completely eliminate pain. Reviewed recommended pain management protocols which included scheduled motrin/tylenol with narcotics added only if needed as they can cause additional pain with constipation and can also lead to respiratory depression in large dosages. Pt very upset, and states she is not being cared for properly. Discussed that if her pain is increasing then this can be concerning for additional pathology and would recommend further evaluation with imaging. Pt states that she is 'sensitive' and simply requires more medication than the average person. Requested that patient allow me to treat her with scheduled motrin/tylenol and will also give additional 2mg of IV morphine x1 for her reported acute pain, with goal of weaning off of IV morphine. Pt still very upset, but states that she will take motrin/tylenol at this time. Will continue to follow closely and encourage PO pain meds. Plan/VTE VTE Prophylaxis Ordered?: Yes VS, I&O, 24H, Fishbone Vital Signs/I&O Vital Signs Date Time Temp Pulse Resp B/P (MAP) Pulse Ox O2 Delivery O2 Flow Rate FiO2 05/03/21 13:07 16 05/03/21 10:00 98.2 69 119/61 (80) 97 Room Air 05/03/21 04:00 2.0 I&O- Last 24 Hours up to 6 AM 05/03/21 06:00 Intake Total 2620 ml Output Total 2700 ml Balance -80 ml Laboratory Data 24H LABS Laboratory Tests 2 05/03/21 08:37: Nucleated Red Blood Cells % (auto) 0.0, Anion Gap 8, Glomerular Filtration Rate > 60.0, Calcium Level 8.6, Total Bilirubin 0.1L, Aspartate Amino Transf (AST/SGOT) 7, Alanine Aminotransferase (ALT/SGPT) 18, Alkaline Phosphatase 41L, Total Protein 6.4, Albumin 3.5, Albumin/Globulin Ratio 1.2 CBC/BMP Laboratory Tests 05/03/21 08:37 SUZETTE JONES M.D. May 03, 2021 13:22
[2021-05-03 16:30] VITALS: BP 120/65
[2021-05-03 20:00] VITALS: BP 113/59
[2021-05-03] MEDS: diazePAM 5MG TABLET PO SCH (21:23)
[2021-05-04] VITALS: BP 115/67
[2021-05-04] MEDS: MORPHINE 4 MG/ML 1ML VIAL/SYRINGE (J2270) IV PRN ×4 (00:46→13:05)
[2021-05-04] MEDS: diphenhydrAMINE 25MG CAP PO PRN ×3 (00:57→08:53)
[2021-05-04] MEDS: HYDROmorphone 2 MG TAB PO SCH ×4 (02:59→14:43)
[2021-05-04 04:00] VITALS: BP 107/57
[2021-05-04] MEDS: IBUPROFEN 800 MG TAB PO SCH ×2 (04:00→10:20)
[2021-05-04] MEDS: ACETAMINOPHEN 500 MG TAB PO SCH (05:00)
[2021-05-04] MEDS ORDERED: FLEET ENEMA PR PRN (08:00)
[2021-05-04] MEDS ORDERED: DIPH25CA32 PO (08:03)
[2021-05-04] MEDS ORDERED: DILA2TAB6 PO (08:03)
[2021-05-04] MEDS ORDERED: DOCUSATE SODIUM 100MG CAPSULE PO SCH (09:00)
[2021-05-04 09:30] VITALS: BP 128/66
[2021-05-04] MEDS: ONDANSETRON 4MG/2ML VIAL IV PRN (10:52)
--- NOTE | 2021-05-04 12:13 | DS.PDOC ---
Discharge Summary General Date of Admission May 02, 2021 at 10:42 Date of Discharge May 04, 2021 Discharge Summary HOSPITAL COURSE: Ms. Alex is a 35 yo female who underwent an uncomplicated, scheduled laparoscopic assisted vaginal hysterectomy and cystoscopy on 02May2021 for severe dysmenorrhea and menorrhagia. The surgery itself was uncomplicated. Pain control was difficult postoperatively. She required a morphine REGISTERED ASSOCIATE initially for pain and then PO dilaudid with IV morphine for breakthrough. She met all her other post op milestones with no issues. On POD#1 she was ambulating, voiding on her own, tolerating a regular diet, and passing gas. She remained in the hospital another day due to difficulties with pain control. Ultimately, her pain was controlled with PO dilaudid, acetaminophen, and ibuprofen. Her post operative course was otherwise unremarkable. On May 04 (POD#2) she felt comfortable with discharge home with PO pain medications. She felt constipated the day of discharge and she was administered a fleet enema with a subsequent successful bowel movement. PO pain medications were ordered for her at the [facility] to include PO dilaudid, PO morphine sulfate, PO tylenol #3, and Motrin. I discussed my concerns with her regarding her heavy narcotic use such as constipation, potential for respiratory depression, and potential for overdose. We discussed post op pain expectations. I will not be supplying her with chronic narcotics and she understands that she will need to wean herself to Ibuprofen and tylenol for pain ultimately. I provided her with zofran (she reports narcotics make her nauseous, though she had no n/v during her hospital stay), benadryl and hydroxyzine for itching, and stool softeners at the [facility]. She verbalized understanding and all questions were answered. DISCHARGE MEDICATIONS: Please see below. ALLERGIES: Please see below. PHYSICAL EXAMINATION ON DISCHARGE: VITAL SIGNS: Please see below. GENERAL: AAOX3, NAD ABDOMINAL EXAMINATION: Abdomen soft, nondistended. Mild bruising. Port sites with mild bruising around them but otherwise normal appearing. No sgins of infection or dehiscence. Dermabond in place. Bowel sounds present. Mild tenderness to palpation in abdomen. EXTREMITIES: Mild edema in lower extremities. PSYCHIATRIC EXAMINATION: Affect appropriate LABORATORY DATA: Please see below. ACTIVITY: Pelvic rest for 6-8 weeks DIET: Regular DISCHARGE PLAN: Discharge home DISPOSITION: Discharge home on 04May2021 DISCHARGE INSTRUCTIONS: Postoperatively, you should expect significant abdominal soreness following a laparoscopic surgery. We will provide oral pain medications. Sometimes, narcotic medications can cause constipation, and we recommend using a stool softener, drinking plenty of water, increasing the fiber in your diet, and drinking prune juice if constipation becomes a significant issue. It will be normal to have some vaginal spotting or discharge for the first couple weeks after surgery. You should not have heavy bleeding. Dressings: Your laparoscopic incisions are closed with absorbable stitches and then covered with Dermabond (a medical adhesive/glue). You may shower on the day following surgery. It is normal to have some pain at the incisions that is sharp. Signs of infection at the incision include pain, redness, swelling and drainage of pus from the incision. Precautions: Please contact the [facility] or the Emergency Room after hours for any of the following symptoms, * Fever (temperature > 101F) * Significant pain not controlled with oral pain medications * Significant nausea and vomiting with inability to tolerate any food or medication * Significant redness of the incisions or drainage from the incisions * Significant vaginal bleeding that is soaking through multiple pads Return to normal: You should be able to resume normal activities and exercise within 4-6 weeks. You may notice more soreness with abdominal exercises, and this is to be expected. Avoid heavy lifting greater than 10 pounds until 6 weeks after surgery. Nothing in the vagina (no tampons, intercourse, or douching) for 6- 8wks. You may resume sexual activity 6-8 weeks after surgery when cleared by your surgeon. ITEMS TO FOLLOWUP ON ON OUTPATIENT: 1. post op appointment in 2 weeks DISCHARGE CONDITION: Stable. TIME SPENT ON DISCHARGE: Greater than 40 minutes. Leena Pack DO Vital Signs/I&Os Vital Signs Date Time Temp Pulse Resp B/P (MAP) Pulse Ox O2 Delivery O2 Flow Rate FiO2 05/04/21 10:52 14 05/04/21 04:00 98.1 92 107/57 (74) 96 Room Air 05/03/21 04:00 2.0 I&O- Last 24 Hours up to 6 AM 05/04/21 06:00 Intake Total 885 ml Output Total 870 ml Balance 15 ml Discharge Medications Scheduled Hydromorphone HCl (Dilaudid) 2 Mg Tablet, 2 MG PO Q4H Ibuprofen (Ibuprofen) 600 Mg Tablet, 600 MG PO TID for pain, (Reported) with food Melatonin (Melatonin) 5 Mg Tab.ir.er, 5 MG PO QPM for sleep, (Reported) Scheduled PRN Acetaminophen with Codeine (Acetaminophen-Cod #3 Tablet) 1 Each Tablet, 1 TAB PO Q4HP PRN for PAIN, (Reported) Diphenhydramine HCl (Diphenhydramine HCl) 25 Mg Capsule, 25 MG PO Q4HP PRN for ITCHING Miscellaneous Medications Ondansetron HCl (Zofran) 4 Mg Tablet, 4 MG PO, (Reported) Allergies Coded Allergies: cyclobenzaprine (Verified Allergy, Intermediate, hives, 05/02/21) ketorolac (Verified Allergy, Intermediate, hives, 05/02/21) can take ibuprofen tramadol (Verified Allergy, Intermediate, hives, 05/02/21) can take ibuprofen LEENA PACK DO May 04, 2021 12:13
--- NOTE | 2021-05-04 12:54 | IPNPDOC ---
Text Note Date of Service The patient was seen on 05/04/21. NOTE 35 yo female POD#2 s/p uncomplicated LAVH, BS, and cysto currently recovering on the fisher. Pain control has been a bit of an issue, but we were able to successfully stop the [employer] yesterday. She is still requiring scheduled dilaudid and IV morphine for breakthrough pain. This morning Pauline reports she has continued pain and also feels bloated and constipated. She is passing gas, but strongly feels like she needs to have a bowel movement but has been unable to despite straining. She is ambulating, voiding without issues, and tolerating a regular diet with no nausea or vomiting. Vitals - VSS, afebrile, normotensive, non tachycardic General - AAOX3, sitting up in bed, NAD, pleasant and conversant, though reporting severe pain. Abdomen - Soft, nondistended. Bowel sounds present. Port sites well appearing and covered with dermabond. Mild bruising noted on abdomen and around port sites. Abdomen mildly tender to palpation but much improved as compared to yesterday. Extremities - Mild edema in lower extremities UO - excellent Labs: Pre op H/H 13.4/42.3 ---> POD#1 H/H 11.7/38.1 Objectively, Pauline is recovering well. She has required a significant amount of narcotics for pain control, however. I discussed with her that her large narcotic requirement is unusual after a laparoscopic surgery, and that it does concern me. I have very low suspicion for any acute surgical complication, i.e., bleeding or organ injury given her clinical appearance and benign abdominal exam, normal vital signs, excellent urine output, and appropriate post op CBC. I do not feel any sort of imaging is necessary. We discussed going home today. Pauline feels up to it as long as she has dilaudid, morphine, tylenol#3, benadryl, zofran, hydroxyzine, and stool softeners to go home with. We discussed pain and recovery expectations while at home. She understands the importance of pelvic rest and no heavy lifting for a full 6 weeks post operatively. She also understands to expect some degree of pain while at home as she recovers. She understands she will continue to have some degree of pain until she is fully recovered. She expressed to me that she is potentially interested in having a bladder sling procedure in the future due to urinary leakage. We had discussed this pre operatively, and at that time she opted to wait until the hysterectomy was completed. We revisit this further when I see her for post op follow up. All patient questions answered. Ramone VS,Sina, I+O VS, Sina, I+O Vital Signs Date Time Temp Pulse Resp B/P (MAP) Pulse Ox O2 Delivery O2 Flow Rate FiO2 05/04/21 11:30 16 05/04/21 04:00 98.1 92 107/57 (74) 96 Room Air 05/03/21 04:00 2.0 I&O- Last 24 Hours up to 6 AM 05/04/21 05:59 Intake Total 885 ml Output Total 870 ml Balance 15 ml LEENA GOTTLIEB DO May 04, 2021 12:54
[2021-05-04] MEDS ORDERED: FIORICET TAB PO ONE (13:15)
--- NOTE | 2021-05-04 16:21 | IPNPDOC ---
Text Note Date of Service The patient was seen on 05/04/21. NOTE Pauline requested to speak with me this afternoon before she went home. She was very upset. Earlier today I ordered her a dose of fioricet for a headache which she said resolved it immediately. She asked for a script to go home with. She refused motrin or tylenol for the headache. She then requested to have her dilaudid early before she was picked up by her . I said that would be fine. I spoke with her via phone this afternoon. She reports feeling very upset because I relayed to her nurse that if she continued to complain of worsening pain and required more narcotics before discharge or after discharge then I would need to consult psychiatry to assess for her safety, her family's safety, and for concerns of drug seeking. She was very offended by this. I again relayed to her that it is atypical for a patient to require as many narcotics as she has received after a minimally invasive, laparoscopic surgery without any complications. I again re iterated my concerns regarding the large amount of narcotics that she requested to go home with during her recovery. I discussed with her that she has no objective findings that would lead me to a suspicion of a surgical complication and/or a need for large amounts of narcotics for pain. I have given her scripts for dilaudid, morphine, tylenol#3, and now fioricet for her pain to go home with. I told her that I will not be giving her any more narcotics in the future because it would be a safety issue to do so. She understands, and reports that she doesn't even want to take them, but that she may need them for her pain. We discussed the importance of being on a bowel regimen as narcotics can be constipating. I have given her miralax, senna, and some enemas. She used an enema this morning and had a bowel movement. She reported this provided her with immediate relief. She understands that she should not be using an enema everyday. She will be following up with me in the office in two weeks. I told her that she would be welcome to call me at the office at any time if she has questions or problems after her surgery before then. We again discussed return precautions and postoperative activity restrictions. All her questions were answered. Leena Pack DO, FACOG VS,Fishbone, I+O VS, Fishbone, I+O Vital Signs Date Time Temp Pulse Resp B/P (MAP) Pulse Ox O2 Delivery O2 Flow Rate FiO2 05/04/21 14:43 16 05/04/21 09:30 97.4 76 128/66 (86) 97 Room Air 05/03/21 04:00 2.0 I&O- Last 24 Hours up to 6 AM 05/04/21 06:00 Intake Total 885 ml Output Total 870 ml Balance 15 ml LEENA PACK DO May 04, 2021 16:21
== END 2021-05-04 15:55 | disposition home or self-care (01) | DRG 743 ==
LOC: EDSTATUS 07:30 → M OR 10:42 → M OBS 18:40 → M PED 05-03 11:05
PROVIDERS: ADMIT Obstetrics & Gynecology; ATTEND Obstetrics & Gynecology
PROC: 0UT9FZZ Resection of Uterus, Via Natural or Artificial Opening With Percutaneous Endoscopic Assistance (ICD-10-PCS; principal; 2021-05-02 12:10)
PROC: 0UTC4ZZ Resection of Cervix, Percutaneous Endoscopic Approach (ICD-10-PCS; 2021-05-02 12:10)
DX: N94.6 Dysmenorrhea, unspecified (principal); N92.0 Excessive and frequent menstruation with regular cycle; K59.00 Constipation, unspecified; Z88.8 Allergy status to other drugs, medicaments and biological substances

== ENCOUNTER 2021-05-09 22:03 | Emergency (ER) | payer OTHER ==
[~2021-05-09] VITALS: Ht 165.1 cm; Wt 81.8 kg
[~2021-05-09 22:03] MED LIST changes: -ACETAMINOPHEN 500 MG TAB PO ONE; +DILA2TAB6 PO; +DIPH25CA32 PO; -GABAPENTIN 300 MG CAP PO ONE; -LIDOCAINE 1% MDV 20ML VIAL SQ PRN; -LR 1,000 ML IV ONE; -ceFAZolin SOD 2 GM in IV 1 EA IV ONE
[2021-05-09] MEDS ORDERED: FLEEENE12 PR (22:19)
[2021-05-09] MEDS ORDERED: MORP15TA2 PO (22:19)
[2021-05-09] MEDS ORDERED: HYDR-643 PO (22:19)
[2021-05-09] MEDS ORDERED: SENN-52 PO (22:19)
[2021-05-09] MEDS ORDERED: ONDANSETRON 4MG/2ML VIAL IV ONE (23:00)
[2021-05-09 23:37] LABS: BASO # 0.1 10^3/uL (0.0-0.2); BASO % 0.5 % (0.0-1.0); EOS # 0.2 10^3/uL (0.0-0.5); EOS % 1.7 % (0.0-3.0); HEMATOCRIT 38.8 % (36.0-47.0); HEMOGLOBIN 12.3 g/dl (12.0-15.5); LYMPH # 2.1 10^3/uL (1.5-5.0); LYMPH % 18.7 % (24.0-44.0); MEAN CORPUSCULAR HEMOGLOBIN 30.1 pg (27.0-33.0); MEAN CORPUSCULAR HGB CONC 31.7 g/dl (32.0-36.5); MEAN CORPUSCULAR VOLUME 95.1 fl (80.0-96.0); MONO # 0.7 10^3/uL (0.0-0.8); MONO % 6.3 % (2.0-8.0); NEUTROPHILS % 72.5 % (36.0-66.0); PLATELET COUNT, AUTOMATED 219 10^3/uL (150-450); RED BLOOD COUNT 4.08 10^6/uL (4.00-5.40)
[2021-05-09] MEDS: MORPHINE 4 MG/ML 1ML VIAL/SYRINGE (J2270) IV PRN (23:37)
[2021-05-10 00:03] LABS: ALBUMIN 3.7 GM/DL (3.2-5.2); ALT/SGPT 26 U/L (12-78); BILIRUBIN,DIRECT < 0.1 MG/DL (0.0-0.2); BILIRUBIN,TOTAL 0.2 MG/DL (0.2-1.0); BLOOD UREA NITROGEN 12 MG/DL (7-18); CALCIUM LEVEL 8.6 MG/DL (8.5-10.1); CARBON DIOXIDE LEVEL 27 MEQ/L (21-32); CHLORIDE LEVEL 107 MEQ/L (98-107); GLOMERULAR FILTRATION RATE > 60.0 (>60); GLUCOSE, FASTING 88 MG/DL (70-100); LIPASE 35 U/L (73-393); POTASSIUM SERUM 3.4 MEQ/L (3.5-5.1); SODIUM LEVEL 142 MEQ/L (136-145); TOTAL PROTEIN 6.6 GM/DL (6.4-8.2)
[2021-05-10] MEDS: MORPHINE 4 MG/ML 1ML VIAL/SYRINGE (J2270) IV PRN (00:11)
[2021-05-10] MEDS ORDERED: ISOVUE-370 76% 100ML VIAL As Ordered ONE (00:17)
[2021-05-10] MEDS ORDERED: diphenhydrAMINE 50MG/ML VIAL (J1200) IV ONE (00:45)
--- NOTE | 2021-05-10 02:17 | REPVR ---
PROCEDURE INFORMATION: Exam: CT Abdomen And Pelvis With Contrast Exam date and time: 05/10/2021 12:09 AM Age: 35 years old Clinical indication: Abdominal pain; Generalized; Prior surgery; Surgery date: <1 month; Surgery type: Hysterectomy; Additional info: Abd pain, recent hysterectomy TECHNIQUE: Imaging protocol: Computed tomography of the abdomen and pelvis with contrast. Radiation optimization: All CT scans at this facility use at least one of these dose optimization techniques: automated exposure control; mA and/or kV adjustment per patient size (includes targeted exams where dose is matched to clinical indication); or iterative reconstruction. Contrast material: ISO; Contrast volume: 100 ml; Contrast route: INTRAVENOUS (IV); COMPARISON: 1. CT ABD/PEL W/IV CONTRAST ONLY 2021-02-19 17:[address] ABD/PEL W/IV CONTRAST ONLY 2019-08-01 15:05 FINDINGS: Liver: The liver demonstrates punctate calcifications, consistent with remote granulomatous organism exposure. Gallbladder and bile ducts: Normal. No calcified stones. No ductal dilation. Pancreas: Normal. No ductal dilation. Spleen: The spleen demonstrates punctate calcifications, consistent with remote granulomatous organism exposure. Adrenal glands: Normal. No mass. Kidneys and ureters: Nonobstructing 3 mm left renal calculus. Stomach and bowel: Constipation. Appendix: No evidence of appendicitis. Intraperitoneal space: Stranding and trace fluid/hemorrhage in the pelvis. Vasculature: Unremarkable. No abdominal aortic aneurysm. Lymph nodes: Unremarkable. No enlarged lymph nodes. Urinary bladder: Unremarkable as visualized. Reproductive: Evidence of a recent hysterectomy. Bones/joints: Unremarkable. No acute fracture. Soft tissues: Unremarkable. IMPRESSION: Evidence of a recent hysterectomy. Stranding and trace fluid/hemorrhage in the pelvis. Electronically signed by: Dragan Case On 05/10/2021 02:16:40 AM
[2021-05-10] MEDS ORDERED: MAGNESIUM CITRATE 300 ML BTL PO ONE (03:55)
[2021-05-10 04:01] VITALS: BP 138/77
== END 2021-05-10 04:15 | disposition home or self-care (01) ==
LOC: M ED 22:03
DX: K59.00 Constipation, unspecified (principal); Z76.5 Malingerer [conscious simulation]; Z88.5 Allergy status to narcotic agent; Z88.8 Allergy status to other drugs, medicaments and biological substances
CPT/HCPCS: 74177; 80048; 80076; 81001; 83605; 83690; 85025; 87086; 96374; 96375; 96376; 99285; J1200; J2270; J2405; Q9967

== ENCOUNTER 2021-09-25 08:58 | Emergency (ER) | payer OTHER ==
[~2021-09-25] VITALS: Ht 165.1 cm; Wt 84.6 kg
[~2021-09-25 08:58] MED LIST changes: +FLEEENE12 PR; +HYDR-643 PO; +MORP15TA2 PO; +SENN-52 PO
[2021-09-25 08:59] VITALS: BP 123/57
[2021-10-30] MEDS ORDERED: OMEP-173 PO (21:15)
== END 2021-09-25 09:07 | disposition left against medical advice (07) ==
LOC: M ED 08:58
DX: Z53.29 Procedure and treatment not carried out because of patient's decision for other reasons (principal)

== ENCOUNTER 2021-10-30 21:03 | Emergency (ER) | payer OTHER ==
[~2021-10-30] VITALS: Ht 165.1 cm; Wt 83.0 kg
[2021-10-30] MEDS ORDERED: OMEP-218 PO (21:15)
[2021-10-30] MEDS ORDERED: ONDANSETRON 4MG/2ML VIAL IV ONE ×2 (21:50→23:35)
[2021-10-30] MEDS ORDERED: NS 1,000 ML IV ONE (21:50)
[2021-10-30 22:43] LABS: BASO # 0.1 10^3/uL (0.0-0.2); BASO % 0.7 % (0.0-1.0); EOS # 0.1 10^3/uL (0.0-0.5); EOS % 0.9 % (0.0-3.0); HEMATOCRIT 39.4 % (36.0-47.0); HEMOGLOBIN 12.5 g/dl (12.0-15.5); LYMPH # 3.3 10^3/uL (1.5-5.0); LYMPH % 32.5 % (24.0-44.0); MEAN CORPUSCULAR HEMOGLOBIN 29.6 pg (27.0-33.0); MEAN CORPUSCULAR HGB CONC 31.7 g/dl (32.0-36.5); MEAN CORPUSCULAR VOLUME 93.1 fl (80.0-96.0); MONO # 0.8 10^3/uL (0.0-0.8); MONO % 7.4 % (2.0-8.0); NEUTROPHILS % 58.3 % (36.0-66.0); PLATELET COUNT, AUTOMATED 179 10^3/uL (150-450); RED BLOOD COUNT 4.23 10^6/uL (4.00-5.40); WHITE BLOOD COUNT 10.2 10^3/uL (4.0-10.0)
[2021-10-30] MEDS ORDERED: ISOVUE-370 76% 100ML VIAL As Ordered ONE (23:06)
[2021-10-30] MEDS: MORPHINE 4 MG/ML 1ML VIAL/SYRINGE (J2270) IV PRN ×2 (23:07→23:50)
[2021-10-30 23:30] LABS: ALBUMIN 3.8 GM/DL (3.2-5.2); ALT/SGPT 18 U/L (12-78); BILIRUBIN,DIRECT < 0.1 MG/DL (0.0-0.2); BILIRUBIN,TOTAL 0.2 MG/DL (0.2-1.0); BLOOD UREA NITROGEN 10 MG/DL (7-18); CALCIUM LEVEL 9.2 MG/DL (8.5-10.1); CARBON DIOXIDE LEVEL 25 MEQ/L (21-32); CHLORIDE LEVEL 110 MEQ/L (98-107); CREATININE FOR GFR 0.72 MG/DL (0.55-1.30); GLOMERULAR FILTRATION RATE > 60.0 (>60); GLUCOSE, FASTING 106 MG/DL (70-100); LIPASE 63 U/L (73-393); POTASSIUM SERUM 3.7 MEQ/L (3.5-5.1); SODIUM LEVEL 143 MEQ/L (136-145)
--- NOTE | 2021-10-31 00:39 | REPVR ---
PROCEDURE INFORMATION: Exam: CT Abdomen And Pelvis With Contrast Exam date and time: 10/30/2021 9:47 PM Age: 35 years old Clinical indication: Pelvic pain x 1 week, worse today, nausea, vomiting, diarrhea, and a history of kidney stones. TECHNIQUE: Imaging protocol: Computed tomography of the abdomen and pelvis with contrast. Radiation optimization: All CT scans at this facility use at least one of these dose optimization techniques: automated exposure control; mA and/or kV adjustment per patient size (includes targeted exams where dose is matched to clinical indication); or iterative reconstruction. Contrast material: ISO; Contrast volume: 100 ml; Contrast route: INTRAVENOUS (IV); COMPARISON: CT ABD/PEL W/IV CONTRAST ONLY 05/10/2021 12:21 AM FINDINGS: Lungs: The imaged portions of the lung bases are clear. The lungs were not fully imaged. Heart: No cardiomegaly or pericardial effusion. Liver: There are calcified granulomas in the liver. No liver mass is identified. The contour of the liver is smooth. No hepatomegaly. Gallbladder and bile ducts: No calcified gallstones are noted. No gallbladder wall thickening, pericholecystic fluid, or pericholecystic inflammatory changes are identified. No dilation of the bile ducts is noted. Pancreas: Normal. No dilation of the main pancreatic duct is noted. Spleen: There are calcified granulomas in the spleen. No splenomegaly. Adrenal glands: Normal. No adrenal mass is noted. Kidneys and ureters: There is a 3 mm calculus in a lower pole calyx of the left kidney, which is unchanged compared to the CT abdomen and pelvis on 05/10/2021. No calculi are noted in the right kidney or ureters. No hydronephrosis or hydroureter is present. There is no renal lesion. There are no wedge-shaped areas of low attenuation in the kidneys to suggest pyelonephritis. There is no renal abscess or perinephric fluid collection. Stomach and bowel: The stomach and small bowel are unremarkable. There is no evidence for a bowel obstruction, diverticulosis, diverticulitis, perforated viscus, pneumatosis intestinalis, intussusception, or volvulus. The descending colon and sigmoid colon are decompressed, limiting their optimal evaluation and resulting in a pseudothickening of the wall of these portions of the bowel. There is no pericolonic inflammatory fat stranding. There is a moderate amount of stool in the ascending colon and proximal transverse colon. Appendix: The retrocecal appendix is normal. No evidence for appendicitis. Intraperitoneal space: No free air. No ascites. No abscess. Retroperitoneal space: Unremarkable. Vasculature: The abdominal aorta is patent, normal in caliber, and there is no dissection. The iliac arteries, common femoral arteries, renal arteries, celiac artery, superior mesenteric artery, and inferior mesenteric artery are patent. Incidental note is made of small round calcifications in the pelvis, which are compatible with phleboliths. Lymph nodes: No enlarged lymph nodes. Urinary bladder: The partially distended urinary bladder is unremarkable. No stones or masses are seen in the bladder. Reproductive: There has been a hysterectomy. There is a 1.9 cm right ovarian cyst with simple characteristics, for which imaging follow-up is not necessary. The left ovary is unremarkable. Bones/joints: There is no fracture or dislocation. No suspicious osteolytic or osteoblastic lesion. Soft tissues: There is a tiny fat containing umbilical hernia, which is similar in appearance compared to the prior CT abdomen and pelvis on 05/10/2021. Incidental note is made of a piercing in the umbilical region. IMPRESSION: 1. No acute findings in the abdomen or pelvis. 2. 1.9 cm right ovarian cyst with simple characteristics, for which imaging follow-up is not necessary. 3. Nonobstructive left nephrolithiasis, which is unchanged compared to the CT abdomen and pelvis on 05/10/2021. 4. Tiny fat containing umbilical hernia, which is similar in appearance compared to the prior CT abdomen and pelvis on 05/10/2021. Electronically signed by: Leon Francois On 10/31/2021 00:38:56 AM
[2021-10-31] MEDS ORDERED: MORPHINE 4 MG/ML 1ML VIAL/SYRINGE (J2270) IV ONE (01:50)
[2021-10-31] MEDS ORDERED: HALOPERIDOL 5MG/ML VIAL (J1630 PER 1) IV ONE (01:50)
[2021-10-31 01:59] LABS: C REACTIVE PROTEIN QUANTITATIV < 0.30 MG/DL (0.00-0.30)
--- NOTE | 2021-10-31 02:10 | REPVR ---
PROCEDURE INFORMATION: Exam: US Pelvis Complete, Transabdominal and US Duplex Artery and Vein, Ovaries, Complete Exam date and time: 10/31/2021 1:47 AM Age: 35 years old Clinical indication: Pelvic pain; Prior surgery; Surgery date: 6+ months; Surgery type: Hysterectomy; Additional info: Left sided pelvic pain. TECHNIQUE: Imaging protocol: Real-time transabdominal pelvic ultrasound with image documentation. Real-time duplex ultrasound scan of the arterial and venous flow of the ovaries with B-mode, color Doppler flow and spectral waveform analysis. Complete Pelvis, Complete Duplex. COMPARISON: 1. US PELVIC NON-OB COMPLETE 08/01/2019 4:[address] ABD/PEL W/IV CONTRAST ONLY 10/30/2021 11:32 PM FINDINGS: Uterus: The uterus has been removed. Right ovary/adnexa: The right ovary measures 4.1 cm x 3.5 cm x 3 cm and contains a 1.9 cm x 2.2 cm x 1.8 cm dominant follicle, for which follow-up imaging is not necessary. The arterial and venous color Doppler flow and spectral waveforms within the right ovary are within normal limits, without evidence for right ovarian torsion. Left ovary/adnexa: The left ovary is normal in appearance. No left ovarian cyst or left adnexal mass is noted. The left ovary measures 3.3 cm x 2.6 cm x 2.6 cm. The arterial and venous color Doppler flow and spectral waveforms within the left ovary are within normal limits, without evidence for left ovarian torsion. Intraperitoneal space: No free fluid is seen from the images obtained. Urinary bladder: The urinary bladder is unremarkable. IMPRESSION: 1. No evidence for ovarian torsion. 2. 1.9 cm x 2.2 cm x 1.8 cm dominant follicular cyst in the right ovary, for which imaging follow-up is not necessary. Electronically signed by: Leon Francois On 10/31/2021 02:09:33 AM
[2021-10-31] MEDS ORDERED: ONDA4TAB6 PO ×2 (03:42→04:26)
[2021-10-31] MEDS ORDERED: RA M10TA PO (03:42)
[2021-10-31] MEDS ORDERED: ACET-653 PO (03:42)
[2021-10-31] MEDS ORDERED: OMEP1CAP73 PO (03:42)
[2021-10-31] MEDS ORDERED: HOME MED LIST COMPLETE! XX SCH (03:45)
[2021-10-31] MEDS ORDERED: ACETAMINOPH W/CODEINE #3 TAB UD PO ONE (03:55)
[2021-10-31] MEDS ORDERED: GI COCKTAIL 50ML BTL(HYOSCYAMINE/MAALOX/LIDOCAINE VISCOUS)(1:3:1) PO ONE ×2 (03:55→04:30)
[2021-10-31] MEDS ORDERED: ACET1TAB16 PO (04:26)
[2021-10-31 05:10] VITALS: BP 133/83
== END 2021-10-31 05:31 | disposition home or self-care (01) ==
LOC: M ED 21:03
DX: R10.9 Unspecified abdominal pain (principal); R11.2 Nausea with vomiting, unspecified; N83.201 Unspecified ovarian cyst, right side; K21.9 Gastro-esophageal reflux disease without esophagitis; Z88.5 Allergy status to narcotic agent; Z88.8 Allergy status to other drugs, medicaments and biological substances; Z79.899 Other long term (current) drug therapy; F17.210 Nicotine dependence, cigarettes, uncomplicated
CPT/HCPCS: 74177; 76856; 80048; 80076; 81001; 83605; 83690; 85025; 86140; 93976; 96361; 96374; 96375; 96376; 99284; J1630; J2270; J2405; Q9967